=== PATIENT | male | born 1950 | race Caucasian/White ===

== ENCOUNTER 2017-05-21 12:49 | Inpatient (IN) | payer MEDICARE, OTHER ==
[2017-05-21] VITALS: BP 100/58
[~2017-05-21] VITALS: Ht 193 cm; Wt 105.2 kg
[~2017-05-21 12:49] MED LIST: ALBU2.5V38 IH; BISA10SU8 RC; DOCU-141 PO; HEPA500013 IJ; HYDR-548 PO; LEVO500T75 PO; MAGN400O21 PO; NA P133E RC; NORT25CA5 PO; OMEP20CA10 PO; PREG300C PO; SILV20CR13 TP; TRAM50TA2 PO
[2017-05-21] MEDS ORDERED: Magnesium 1GM/D5W 100ML PREMIX 200 ML IV ONE ×2 (12:56→13:19)
--- NOTE | 2017-05-21 12:58 | NUR ---
PT BIB [facility] C/O SOB AND HYPOXIA. 83% ON ROOM AIR, PLACED ON 6L VIA SIMPLE MASK WITH GOOD TOLERANCE. SKIN HOT DIAPHORETIC. RESP LABORED, RETRACTIONS, SHALLOW. NON-PRODUCTIVE COUGH. C/O PAIN IN HANDS AND FEET, WHICH HE REPORTS IS CHRONIC SECONDARY TO PERIPHERAL NEUROPATHY. NOTED TO BE IN AFIB UNCONTROLLED ON MONITOR. EKG IN PROCESS. IV ESTABLISHED FROM EMS.
[2017-05-21] MEDS ORDERED: IV NS 0.9% 1,000 ML BAG IV ONE (13:00)
[2017-05-21] MEDS ORDERED: IPRATROPIUM NEB FS 0.5 MG/2.5 ML AMPUL.NEB NEB ONE (13:00)
[2017-05-21] MEDS ORDERED: DILTIAZEM HCL IV 125 MG in IV D5W 100 ML IV ONE (13:00)
[2017-05-21] MEDS ORDERED: methylPREDNISolone SOD SUCC 125 MG/2ML VIAL IV ONE (13:00)
[2017-05-21] MEDS ORDERED: DILTIAZEM HCL 25 MG IV IVP ONE (13:00)
[2017-05-21] MEDS ORDERED: ALBUTEROL FS 2.5 MG/3 ML VIAL.NEB NEB ONE (13:00)
[2017-05-21] MEDS ORDERED: VANCOMYCIN 1 GM in IV D5W 250 ML IV ONE (13:00)
[2017-05-21] MEDS ORDERED: CEFEPIME 1 GM in IV D5W 50 ML IV ONE (13:00)
[2017-05-21 13:15] LABS: BASOPHILS # (AUTO) 0.3 /CMM (0.0-0.2); BASOPHILS % (AUTO) 2.3 % (0.0-2.0); EOSINOPHILS % (AUTO) 0.1 % (0.0-6.0); HEMATOCRIT 49 % (39-51); HEMOGLOBIN 16.1 g/dL (13.5-17.5); LYMPHOCYTES # (AUTO) 0.2 /CMM (0.8-4.8); LYMPHOCYTES % (AUTO) 1.5 % (20.0-44.0); MEAN CORPUSCULAR HGB CONC 33 g/dl (31.0-36.0); MEAN CORPUSCULAR VOLUME 89 fL (80-96); MONOCYTES # (AUTO) 0.1 /CMM (0.1-1.30); MONOCYTES % (AUTO) 0.6 % (2.0-12.0); NEUTROPHILS # (AUTO) 13.7 /CMM (1.8-8.9); NEUTROPHILS % (AUTO) 95.5 % (43.0-81.0); PLATELET COUNT (AUTO) 266 /CMM (150-450); RDW COEFFICIENT OF VARIATION 15.1 (11.5-15.0); RED BLOOD CELL COUNT(AUTO) 5.51 MIL/uL (4.5-6.0); WHITE BLOOD COUNT (AUTO) 14.3 K/uL (4.3-11.0)
[2017-05-21] MEDS ORDERED: DILTIAZEM HCL 25 MG IV ONE (13:18)
[2017-05-21] MEDS ORDERED: VANCOMYCIN 1 GM VIAL ONE (13:18)
[2017-05-21] MEDS ORDERED: methylPREDNISolone SOD SUCC 125 MG/2ML VIAL ONE (13:22)
[2017-05-21 13:27] LABS: CALCIUM, SERUM 9.1 mg/dL (8.5-10.1); CARBON DIOXIDE 29 mmol/L (21-32); CHLORIDE 100 mmol/L (98-107); GLUCOSE 146 mg/dL (74-106); POTASSIUM 3.9 mmol/L (3.5-5.1); SODIUM SERUM 136 mmol/L (136-145); UREA NITROGEN, BLOOD 12 mg/dL (7-18)
[2017-05-21] MEDS ORDERED: IPRATROPIUM NEB FS 0.5 MG/2.5 ML AMPUL.NEB ONE (13:29)
[2017-05-21] MEDS ORDERED: ALBUTEROL FS 2.5 MG/3 ML VIAL.NEB ONE (13:29)
[2017-05-21 13:30] LABS: INR 1.14 (0.85-1.15)
[2017-05-21 13:33] LABS: ALANINE AMINOTRANSFERASE 7 U/L (12-78); ALBUMIN 2.4 g/dL (3.4-5.0); ALKALINE PHOSPHATASE 85 U/L (46-116); ASPARTATE AMINOTRANSFERASE 16 U/L (15-37); BILIRUBIN,DIRECT 0.4 mg/dL (0.0-0.2); BILIRUBIN,TOTAL 1.1 mg/dL (0.2-1.0); TOTAL PROTEIN, SERUM 6.6 g/dL (6.4-8.2)
[2017-05-21] MEDS ORDERED: ATOR10TA PO (13:34)
[2017-05-21] MEDS ORDERED: MORP15TA10 PO (13:34)
[2017-05-21] MEDS ORDERED: ACET-868 PO (13:34)
[2017-05-21] MEDS ORDERED: APIX2.5T PO (13:34)
[2017-05-21] MEDS ORDERED: AMIN30LI4 PO (13:34)
[2017-05-21] MEDS ORDERED: PREG150C PO (13:34)
[2017-05-21] MEDS ORDERED: ASPI-1169 PO (13:34)
[2017-05-21 13:35] LABS: TROPONIN I < 0.017 ng/mL (0.00-0.056)
--- NOTE | 2017-05-21 13:35 | NUR ---
PT REFUSES BREATHING TREATMENT AND IN AND OUT CATH DESPITE EDUCATION BY MYSELF AND RT ALEXANDRA ABOUT BENEFITS AND RISKS OF BREATHING TREATMENT AND CATHETER. PT IS A/OX4, INCONTINENT, WEARING DIAPER; UNABLE TO PROVIDE SAMPLE BY URINAL. NOTIFIED.
--- NOTE | 2017-05-21 13:43 | NUR ---
RT NOTE PT REFUSED BREATHING TX, MED WASTED. PT WAS EDUCATED ON REASON WHY MD ORDERED TX. PT STATED HE WAS NOT SHORT OF BREATH AND WAS FIRM ON REJECTING TX. DR MIJARES AWARE AND CHRISTIANO COMBS AWARE. PT IS IN NO RESPIRATORY DISTRESS AT THIS TIME.
--- NOTE | 2017-05-21 13:45 | NUR ---
PT REFUSES FLU SWAB DESPITE EDUCATION ON BENEFITS AND RISKS. NOTIFIED .
[2017-05-21] MEDS ORDERED: TRAMADOL HCL 50 MG TABLET PO PRN (14:00)
[2017-05-21] MEDS ORDERED: ACETAMINOPHEN 325 MG TABLET PO PRN ×2 (14:00→14:30)
[2017-05-21] MEDS ORDERED: NA PHOS,M-B/NA PHOS,DI-BA 1 EA ENEMA RC PRN (14:00)
[2017-05-21] MEDS ORDERED: BISACODYL SUPP (10 MG) 10 MG/SUPP.RECT SUPP.RECT RC PRN (14:00)
[2017-05-21] MEDS ORDERED: MAGNESIUM HYDROXIDE 30 ML UDC PO PRN ×2 (14:00→14:30)
--- NOTE | 2017-05-21 14:13 | NUR ---
DRIP TITRATED TO 10MG/HR PER MD ORDER
[2017-05-21] MEDS ORDERED: ALBUTEROL FS 2.5 MG/0.5 ML VIAL.NEB NEB PRN (14:30)
[2017-05-21] MEDS ORDERED: ZOLPIDEM TARTRATE 5 MG TABLET PO PRN (14:30)
[2017-05-21] MEDS ORDERED: HYDROCODONE/APAP 5/325MG 1 EACH TABLET PO PRN (14:30)
[2017-05-21] MEDS ORDERED: ONDANSETRON HCL/PF 4 MG/2 ML VIAL IVP PRN (14:30)
--- NOTE | 2017-05-21 14:43 | NUR ---
REPORT GIVEN TO NATALIYA COMBS FOR ADMISSION
--- NOTE | 2017-05-21 14:50 | NUR ---
NOTED WITH HYPOTENSION; CARDIZEM DRIP DECREASED TO 5MG/HR. PT MARKEDLY LESS DIAPHORETIC THAN UPON INITIAL PRESENTATION, RESPIRATIONS LESS LABORED. REMAINS ALERT/ORIENTED.
--- NOTE | 2017-05-21 15:20 | NUR ---
LINENS CHANGED AND ED-CARE RENDERED. PT PULLED OUT LFA 18G IV, PRESSURE DRESSING APPLIED. PT THEN TRANSPORTED TO [place] [id number] IN GUARDED CONDITION VIA ACLS PROTOCOL WITH ELIESER HARDY ONGOING. Addendum: 05/21/17 at 1548 by ALONDRA ONGOING AT 5MG/HR
[2017-05-21] MEDS ORDERED: MORPHINE SULFATE INJ 4 MG/ML DISP.SYRIN IV PRN (15:30)
[2017-05-21 15:40] VITALS: BP 101/51
--- NOTE | 2017-05-21 15:40 | NUR ---
RN NOTES RECEIVED PT FROM ER IN ROOM 118-2 , A/Ox4, ON 6L O2 FACE MASK , RESPIRATION EVEN AND UNLABORED, O2 SAT 96%, R WRIST IV SITE G 18 CDI, ON TELE A.FIB HR IN 100'S, CARDIZEM AT 5MG /HR RUNNING VIA R WRIST IV SITE , REDNESS NOTED TO SCROTUM , SR UP x3, CALL LIGHT WITHIN EASY REACH, BED LOCKED AND IN LOWEST POSITION , CONTINUE TO MONITOR PT CLSOELY .
[2017-05-21] MEDS ORDERED: FEE PK DOSING 1 MIN EA MC ONE (15:50)
[2017-05-21 16:00] VITALS: BP 92/51
--- NOTE | 2017-05-21 16:40 | NUR ---
RN NOTES PT STATED WANTS TO BE DNR/DRI, DR. ABERNATHY NOTIFIED .
[2017-05-21] MEDS ORDERED: APIXABAN 2.5 MG TABLET PO SCH (17:00)
[2017-05-21] MEDS ORDERED: DILTIAZEM HCL 50 MG IV IV PRN (17:00)
[2017-05-21] MEDS ORDERED: PREGABALIN 100 MG CAPSULE PO SCH (17:00)
[2017-05-21] MEDS ORDERED: PREGABALIN 25 MG CAPSULE PO SCH (17:30)
[2017-05-21] MEDS: PIPERACILLIN /TAZOBACTAM 3.375 G in IV D5W 50 ML IV SCH (19:09)
[2017-05-21 20:00] VITALS: BP 94/69
[2017-05-21] MEDS: PREGABALIN 25 MG CAPSULE PO SCH (21:18)
[2017-05-21] MEDS: VANCOMYCIN 1 GM in IV D5W 250 ML IV SCH (21:19)
[2017-05-21] MEDS: ATORVASTATIN 10 MG TABLET PO SCH (21:19)
[2017-05-21] MEDS: MORPHINE SULFATE SR 15 MG TABLET.SA PO SCH (21:19)
[2017-05-21] MEDS: methylPREDNISolone SOD SUCC 125 MG/2ML VIAL IV SCH (21:19)
[2017-05-21] MEDS: APIXABAN 2.5 MG TABLET PO SCH (21:25)
--- NOTE | 2017-05-21 21:49 | NUR ---
RN NOTES RECEIVED PT FROM AM SHIFT NURSE IN ROOM 118-2 , A/Ox4, ON 6L O2 FACE MASK , RESPIRATION EVEN AND UNLABORED, O2 SAT 96%, R WRIST IV SITE G 18 CDI, ON TELE A.FIB HR IN 80'S, S/P CARDIZEM AT 5MG /HR STOPPED , REDNESS NOTED TO SCROTUM , SR UP x3, CALL LIGHT WITHIN EASY REACH, BED LOCKED AND IN LOWEST POSITION , CONTINUE TO MONITOR PT CLSOELY .
[2017-05-21] MEDS: MAG HYDROX/AL HYDROX/SIMETH 30 ML UDC PO PRN (21:59)
[2017-05-22] VITALS: BP 106/66
[2017-05-22] MEDS: PIPERACILLIN /TAZOBACTAM 3.375 G in IV D5W 50 ML IV SCH ×4 (00:06→17:21)
[2017-05-22 04:00] VITALS: BP 106/66
[2017-05-22] MEDS: methylPREDNISolone SOD SUCC 125 MG/2ML VIAL IV SCH ×3 (05:38→20:43)
--- NOTE | 2017-05-22 06:22 | NUR ---
RN PERRY CLOSING NOTES ENDORSED PT FROM AM SHIFT NURSE IN ROOM 118-2 , A/Ox4, ON 6L O2 FACE MASK , RESPIRATION EVEN AND UNLABORED, O2 SAT 96%, R WRIST IV SITE G 18 CDI, ON TELE A.FIB HR IN 80'S, S/P CARDIZEM AT 5MG /HR STOPPED , REDNESS NOTED TO SCROTUM , SR UP x3, CALL LIGHT WITHIN EASY REACH, BED LOCKED AND IN LOWEST POSITION , CONTINUE TO MONITOR PT CLSOELY
[2017-05-22] MEDS: VANCOMYCIN 1 GM in IV D5W 250 ML IV SCH ×3 (06:51→21:15)
[2017-05-22 07:17] LABS: BASOPHILS % (AUTO) 0.1 % (0.0-2.0); HEMATOCRIT 45 % (39-51); HEMOGLOBIN 14.7 g/dL (13.5-17.5); LYMPHOCYTES # (AUTO) 0.2 /CMM (0.8-4.8); LYMPHOCYTES % (AUTO) 1.3 % (20.0-44.0); MEAN CORPUSCULAR HGB CONC 32 g/dl (31.0-36.0); MEAN CORPUSCULAR VOLUME 91 fL (80-96); MONOCYTES # (AUTO) 0.1 /CMM (0.1-1.30); MONOCYTES % (AUTO) 0.7 % (2.0-12.0); NEUTROPHILS # (AUTO) 18.6 /CMM (1.8-8.9); NEUTROPHILS % (AUTO) 97.9 % (43.0-81.0); PLATELET COUNT (AUTO) 226 /CMM (150-450); RDW COEFFICIENT OF VARIATION 16.3 (11.5-15.0); RED BLOOD CELL COUNT(AUTO) 4.97 MIL/uL (4.5-6.0)
[2017-05-22 07:40] LABS: CALCIUM, SERUM 8.6 mg/dL (8.5-10.1); CREATININE 0.9 mg/dL (0.6-1.3); MAGNESIUM 2.2 mg/dL (1.8-2.4); PHOSPHORUS 3.3 mg/dL (2.5-4.9); POTASSIUM 4.2 mmol/L (3.5-5.1)
[2017-05-22 08:00] VITALS: BP 113/65
[2017-05-22] MEDS: ASPIRIN 81 MG TAB.CHEW PO SCH (08:19)
[2017-05-22] MEDS: MORPHINE SULFATE SR 15 MG TABLET.SA PO SCH ×2 (08:20→20:45)
[2017-05-22] MEDS: PROSOURCE / PROSTAT (PYXIS) 30 ML UDC PO SCH ×2 (08:20→09:48)
[2017-05-22] MEDS: APIXABAN 2.5 MG TABLET PO SCH ×2 (08:20→20:43)
[2017-05-22] MEDS: PREGABALIN 25 MG CAPSULE PO SCH ×2 (08:42→20:44)
[2017-05-22 10:53] LABS: BAND % (MANUAL) 7 % (0.0-5.0); LYMPHOCYTES % (MANUAL) 2 % (16-48); NEUTROPHILS % (MANUAL) 91 (42-76)
--- NOTE | 2017-05-22 12:46 | NUR ---
MS RN NOTE 0720: Received patient awake, A/Ox4. No respiratory distress noted at this time. Noted removing simple mask, encouraged to use NC. Sat 90% on room air.Afib 90's controlled on the monitor. PIV intact. No fever noted at this time, but noted with diaphoresis at times. Made patient comfortable. 0900: S/E by Dr. Moralez, with order to DC tele and transfer to [place], CN aware. 1200: Noted patient's SBP 80-90's. Patient has no c/o dizziness, lightheadedness etc, placed patient flat in bed. Will continue to monitor. 1240: No any significant changes noted at this time.
--- NOTE | 2017-05-22 15:11 | NUR ---
INITIAL ECHO FINDING SHOWED EF OF 32%~ AND WITH PLEURAL EFFUSION. SCANNED HEART ON RIGHT SIDE OF CHEST POSSIBLY DEXTROCARDIA. INFORMED ATTENDING NURSE (CHARMAINE) OF PRELIMINARY RESULTS.
[2017-05-22 16:00] VITALS: BP 90/55
--- NOTE | 2017-05-22 18:28 | NUR ---
MS RN NOTE No significant changes noted. kept clean, warm and dry. Needs attended. Kept call light at reach. SBP 90's, no c/o dizziness, lightheadedness etc. Turned q2. Diet tolerated well. Remained afebrile, no SE from ATB therapy, will endorse to next shift.
--- NOTE | 2017-05-22 19:55 | NUR ---
RN NOTES RECEIVED PT FROM AM SHIFT NURSE IN ROOM 118-2 , A/Ox4, ON NC @ 2L , RESPIRATION EVEN AND UNLABORED, O2 SAT 96%, R WRIST IV SITE G 18 CDI, ON MS MONITORING, FOR DC PLANNING , REDNESS NOTED TO SCROTUM , SR UP x3, CALL LIGHT WITHIN EASY REACH, BED LOCKED AND IN LOWEST POSITION , CONTINUE TO MONITOR PT CLSOELY .
[2017-05-22 20:00] VITALS: BP 117/69
[2017-05-22] MEDS: ATORVASTATIN 10 MG TABLET PO SCH (21:11)
--- NOTE | 2017-05-22 21:16 | NUR ---
2200 MARCELA 1GM HELD, MARCELA T 21 H.
[2017-05-22] MEDS: MAG HYDROX/AL HYDROX/SIMETH 30 ML UDC PO PRN (22:22)
[2017-05-23] VITALS: BP 117/69
[2017-05-23] MEDS: PIPERACILLIN /TAZOBACTAM 3.375 G in IV D5W 50 ML IV SCH ×4 (00:09→17:08)
[2017-05-23 04:00] VITALS: BP 107/56
[2017-05-23] MEDS: methylPREDNISolone SOD SUCC 125 MG/2ML VIAL IV SCH ×3 (04:28→21:11)
[2017-05-23] MEDS: VANCOMYCIN 1 GM in IV D5W 250 ML IV SCH (05:57)
--- NOTE | 2017-05-23 05:58 | NUR ---
0600 VANCO 1GM HELD, VANCO T 21 H.
--- NOTE | 2017-05-23 05:59 | NUR ---
RN CLOSING NOTES ENDORSED PT TO AM SHIFT NURSE IN ROOM 118-2 , A/Ox4, ON NC @ 2L , RESPIRATION EVEN AND UNLABORED, O2 SAT 96%, R WRIST IV SITE G 18 CDI, ON MS MONITORING , REDNESS NOTED TO SCROTUM , SR UP x3, CALL LIGHT WITHIN EASY REACH, BED LOCKED AND IN LOWEST POSITION , CONTINUE TO MONITOR PT CLSOELY
[2017-05-23 06:48] LABS: CALCIUM, SERUM 8.1 mg/dL (8.5-10.1); CREATININE 0.9 mg/dL (0.6-1.3); POTASSIUM 4.2 mmol/L (3.5-5.1)
--- NOTE | 2017-05-23 07:28 | NUR ---
M/S RN NOTE: RECEIVED PATIENT IN BED, AWAKE, ALERT AND VERBALLY RESPONSIVE. RESPIRATION IS EVEN AND UNLABORED. ON O2 2L/MIN VIA NC SATURATING 95%. VERBALIZED PAIN ON HIS (B) HANDS AND FEET AND A MORPHINE 15 MG WAS ROUTINELY SCHEDULED. HOB ELEVATED. (R) WRIST IV PERIPHERAL LINE WAS INTACT W/ TRANSPARENT DRESSING. CALL LIGHT WITHIN REACH. NEEDS ANTICIPATED.
[2017-05-23 07:38] LABS: HEMATOCRIT 42 % (39-51); HEMOGLOBIN 13.5 g/dL (13.5-17.5); LYMPHOCYTES # (AUTO) 0.3 /CMM (0.8-4.8); LYMPHOCYTES % (AUTO) 1.5 % (20.0-44.0); MEAN CORPUSCULAR HGB CONC 32 g/dl (31.0-36.0); MEAN CORPUSCULAR VOLUME 91 fL (80-96); MONOCYTES # (AUTO) 0.5 /CMM (0.1-1.30); MONOCYTES % (AUTO) 2.6 % (2.0-12.0); NEUTROPHILS # (AUTO) 17.5 /CMM (1.8-8.9); NEUTROPHILS % (AUTO) 95.9 % (43.0-81.0); PLATELET COUNT (AUTO) 213 /CMM (150-450); RDW COEFFICIENT OF VARIATION 16.2 (11.5-15.0); RED BLOOD CELL COUNT(AUTO) 4.61 MIL/uL (4.5-6.0); WHITE BLOOD COUNT (AUTO) 18.2 K/uL (4.3-11.0)
[2017-05-23 07:53] LABS: CHOLESTEROL 61 mg/dL (<200); HDL CHOLESTEROL 41 mg/dL (40-60); LDL 21 mg/dL (0-99); TRIGLYCERIDES 55 mg/dL (30-150)
[2017-05-23 08:00] VITALS: BP 105/72
[2017-05-23 08:04] LABS: BAND % (MANUAL) 5 % (0.0-5.0); LYMPHOCYTES % (MANUAL) 2 % (16-48); MONOCYTES % (MANUAL) 2 % (0-11.0); NEUTROPHILS % (MANUAL) 91 (42-76)
[2017-05-23] MEDS: ASPIRIN 81 MG TAB.CHEW PO SCH (09:02)
[2017-05-23] MEDS: APIXABAN 2.5 MG TABLET PO SCH ×2 (09:02→21:16)
[2017-05-23] MEDS: PREGABALIN 25 MG CAPSULE PO SCH ×2 (09:02→21:15)
[2017-05-23] MEDS: MORPHINE SULFATE SR 15 MG TABLET.SA PO SCH ×2 (09:06→21:15)
--- NOTE | 2017-05-23 12:10 | NUR ---
M/S RN NOTE: CALLED AND SPOKE W/ RAFAEL, PHARMACIST AND INFORMED HIM ABOUT THE VANCO TROUGH OF 21 YESTERDAY. PER RAFAEL, HE WILL ADJUST THE DOSING FOR THE VANCOMYCIN AND WILL SEND THE DOSE. OK TO GIVE VANCOMYCIN.
[2017-05-23] MEDS: VANCOMYCIN 0.75 GM in IV D5W 250 ML IV SCH ×2 (13:06→21:11)
[2017-05-23 16:00] VITALS: BP 111/72
[2017-05-23] MEDS: Z GUARD REMEDY 2 OZ OINT TP PRN (19:01)
--- NOTE | 2017-05-23 19:16 | NUR ---
M/S RN NOTE: PATIENT IN BED, AWAKE, ALERT AND VERBALLY RESPONSIVE. WATCHING TELEVISION. RESPIRATION IS EVEN AND UNLABORED. ON O2 2L/MIN VIA NC AND SATURATING 96%. (R) WRIST IV LINE NOTED PATENT AND INTACT. HOB ELEVATED. CALL LIGHT WITHIN REACH. REPORT GIVEN TO PM SHIFT NURSE FOR CONTINUITY OF CARE.
[2017-05-23] MEDS: ATORVASTATIN 10 MG TABLET PO SCH (21:13)
[2017-05-24] VITALS: BP 100/65
[2017-05-24] MEDS: PIPERACILLIN /TAZOBACTAM 3.375 G in IV D5W 50 ML IV SCH ×3 (00:47→11:44)
[2017-05-24] MEDS: VANCOMYCIN 0.75 GM in IV D5W 250 ML IV SCH (04:22)
[2017-05-24] MEDS: methylPREDNISolone SOD SUCC 125 MG/2ML VIAL IV SCH ×2 (04:22→12:03)
--- NOTE | 2017-05-24 05:46 | NUR ---
M/S RN CLOSING NOTE: PATIENT ENDORSED IN BED, AWAKE, ALERT AND VERBALLY RESPONSIVE. WATCHING TELEVISION. RESPIRATION IS EVEN AND UNLABORED. ON O2 2L/MIN VIA NC AND SATURATING 96%. (R) WRIST IV LINE NOTED PATENT AND INTACT. HOB ELEVATED. CALL LIGHT WITHIN REACH. REPORT GIVEN TO PM SHIFT NURSE FOR CONTINUITY OF CARE.
--- NOTE | 2017-05-24 07:30 | NUR ---
M/S RN NOTE: RECEIVED PATIENT IN BED, AWAKE, ALERT AND VERBALLY RESPONSIVE. RESPIRATION IS EVEN AND UNLABORED. ON O2 2L/MIN VIA NC SATURATING 93%. VERBALIZED PAIN ON HIS (B) HANDS AND FEET AND A MORPHINE 15 MG WAS ROUTINELY SCHEDULED. HOB ELEVATED. (R) WRIST IV PERIPHERAL LINE WAS INTACT W/ TRANSPARENT DRESSING. BED ALARM AND LOCKED AT ALL TIMES. CALL LIGHT WITHIN REACH. NEEDS ANTICIPATED.
[2017-05-24 07:47] LABS: EOSINOPHILS % (AUTO) 0.1 % (0.0-6.0); HEMATOCRIT 40 % (39-51); HEMOGLOBIN 13.1 g/dL (13.5-17.5); LYMPHOCYTES # (AUTO) 0.3 /CMM (0.8-4.8); LYMPHOCYTES % (AUTO) 2.3 % (20.0-44.0); MEAN CORPUSCULAR HGB CONC 33 g/dl (31.0-36.0); MEAN CORPUSCULAR VOLUME 90 fL (80-96); MONOCYTES # (AUTO) 0.2 /CMM (0.1-1.30); MONOCYTES % (AUTO) 1.7 % (2.0-12.0); NEUTROPHILS # (AUTO) 11.2 /CMM (1.8-8.9); NEUTROPHILS % (AUTO) 95.9 % (43.0-81.0); PLATELET COUNT (AUTO) 192 /CMM (150-450); RDW COEFFICIENT OF VARIATION 16.4 (11.5-15.0); RED BLOOD CELL COUNT(AUTO) 4.45 MIL/uL (4.5-6.0); WHITE BLOOD COUNT (AUTO) 11.7 K/uL (4.3-11.0)
[2017-05-24 08:00] VITALS: BP 117/76
[2017-05-24 08:24] LABS: CALCIUM, SERUM 7.8 mg/dL (8.5-10.1); CREATININE 0.9 mg/dL (0.6-1.3); POTASSIUM 4.2 mmol/L (3.5-5.1)
[2017-05-24] MEDS: PREGABALIN 25 MG CAPSULE PO SCH (08:48)
[2017-05-24] MEDS: ASPIRIN 81 MG TAB.CHEW PO SCH (08:48)
[2017-05-24] MEDS: APIXABAN 2.5 MG TABLET PO SCH (08:48)
[2017-05-24] MEDS: MORPHINE SULFATE SR 15 MG TABLET.SA PO SCH (08:49)
[2017-05-24] MEDS: PROSOURCE / PROSTAT (PYXIS) 30 ML UDC PO SCH ×2 (08:50→09:00)
[2017-05-24] MEDS ORDERED: MEROPENEM 500 MG in IV NS 0.9% 50 ML IV SCH (14:00)
[2017-05-24] MEDS ORDERED: PRED50TA PO (14:42)
[2017-05-24] MEDS ORDERED: MERO500V IV (14:42)
[2017-05-24] MEDS ORDERED: METH4TAB3 PO (14:42)
[2017-05-24 16:00] VITALS: BP 121/71
[2017-05-24] MEDS: Z GUARD REMEDY 2 OZ OINT TP PRN (16:43)
--- NOTE | 2017-05-24 17:30 | NUR ---
M/S RN NOTE: PATIENT WAS DISCHARGED TO [facility] AND WAS ACCOMPANIED BY 3 COMMUTER TRAIN OPERATOR OF [employer] REPORT WAS GIVEN TO LAURYN JONES FROM THE SNF. ALL PAPERWORK WAS HANDED TO THE COMMUTER TRAIN OPERATOR. PATIENT'S (R) WRIST IV PERIPHERAL LINE WAS NOTED INTACT AND IN PLACED. REQUESTED NOT TO BE REMOVED DUE TO THE CONTINUED IV ANTIBIOTIC THERAPY AT THE ASSISTED. PATIENT REFUSED TO RECEIVED OXYGEN AND SATURATING 92-95% IN RA. DENIED ANY PAIN. SENSITIVE TO TOUCH ON HIS (B) HANDS AND FEET. PICTURE WAS TAKEN ON HIS (L) UPPER EXTREMITY, AND FILED IN THE CHART. EYE GLASSES WAS RELEASED W/ THE PATIENT UPON DISCHARGE.
== END 2017-05-24 17:38 | DRG 871 ==
LOC: ER 12:50 → TELE-TD 14:50 → MEDSG1 05-22 11:43
PROVIDERS: ADMIT Internal Medicine; ATTEND Internal Medicine
DX: A41.9 Sepsis, unspecified organism (principal); J18.9 Pneumonia, unspecified organism; I50.23 Acute on chronic systolic (congestive) heart failure; R53.2 Functional quadriplegia; D68.69 Other thrombophilia; I48.91 Unspecified atrial fibrillation; I11.0 Hypertensive heart disease with heart failure; J44.0 Chronic obstructive pulmonary disease with (acute) lower respiratory infection; N39.0 Urinary tract infection, site not specified; J44.1 Chronic obstructive pulmonary disease with (acute) exacerbation; G62.9 Polyneuropathy, unspecified; E78.5 Hyperlipidemia, unspecified; K21.9 Gastro-esophageal reflux disease without esophagitis; F03.90 Unspecified dementia, unspecified severity, without behavioral disturbance, psychotic disturbance, mood disturbance, and anxiety; G89.4 Chronic pain syndrome; Z66 Do not resuscitate; Z74.01 Bed confinement status; Z79.01 Long term (current) use of anticoagulants; Z79.82 Long term (current) use of aspirin; B96.20 Unspecified Escherichia coli [E. coli] as the cause of diseases classified elsewhere; Z16.12 Extended spectrum beta lactamase (ESBL) resistance
CPT/HCPCS: 36415; 71045-TC; 80048-TC; 80061-TC; 80076-TC; 80202-TC; 83605-TC; 83735-TC; 84100-TC; 84484-TC; 85025-TC; 85730-TC; 87040-TC; 87081-TC; 87186-TC; 93307-TC; A4216; A4606; J0692; J2185; J2543; J2930; J3370; J3475; J3490; J7030; J7050; J7060; Z7610

== ENCOUNTER 2018-12-03 04:00 | Inpatient (IN) | payer MEDICARE, OTHER ==
[~2018-12-03] VITALS: Ht 193 cm; Wt 100.2 kg
[~2018-12-03 04:00] MED LIST changes: +ACET-868 PO; -ALBU2.5V38 IH; +AMIN30LI4 PO; +APIX2.5T PO; +ASPI-1169 PO; +ATOR10TA PO; -DOCU-141 PO; -HEPA500013 IJ; -HYDR-548 PO; -LEVO500T75 PO; +MERO500V21 IV; +METH4TAB3 PO; +MORP15TA10 PO; -NORT25CA5 PO; -OMEP20CA10 PO; +PRED50TA PO; +PREG150C PO; -PREG300C PO; -SILV20CR13 TP
--- NOTE | 2018-12-03 04:11 | NUR ---
PT BIB EMS C/O A-FIB WITH RVR, SOB WITH COUGH AND CONGESTION, BILATERAL FOOT AND HAND PAIN DUE TO NEUROPATHY. PT AAOX4. PT PLACED ON CONTINIOUS MANAGER FRENCH AND PULSE OX, WILL CONTINUE TO MONITOR.
[2018-12-03] MEDS ORDERED: DILTIAZEM HCL 50 MG IV IV ONE (04:30)
[2018-12-03] MEDS ORDERED: DILTIAZEM HCL IV 125 MG in IV NS 0.9% 100 ML IV PRN (04:30)
[2018-12-03 04:33] LABS: BASOPHILS % (AUTO) 0.2 % (0.0-2.0); HEMATOCRIT 55 % (39-51); HEMOGLOBIN 17.7 g/dL (13.5-17.5); LYMPHOCYTES # (AUTO) 0.2 /CMM (0.8-4.8); LYMPHOCYTES % (AUTO) 0.7 % (20.0-44.0); MEAN CORPUSCULAR HGB CONC 32 g/dl (31.0-36.0); MEAN CORPUSCULAR VOLUME 93 fL (80-96); MONOCYTES # (AUTO) 0.6 /CMM (0.1-1.30); NEUTROPHILS # (AUTO) 28.2 /CMM (1.8-8.9); NEUTROPHILS % (AUTO) 97.1 % (43.0-81.0); PLATELET COUNT (AUTO) 247 /CMM (150-450); RED BLOOD CELL COUNT(AUTO) 5.92 MIL/uL (4.5-6.0)
[2018-12-03] MEDS ORDERED: DILTIAZEM HCL 25 MG IV ONE (04:39)
--- NOTE | 2018-12-03 04:43 | NUR ---
NOTED HYPOTENSION, ER MD AWARE. PER VERBAL MD ORDER WILL HOLD CARDIZEM DRIP.
[2018-12-03 04:44] LABS: CALCIUM, SERUM 9.2 mg/dL (8.5-10.1); CREATININE 1.7 mg/dL (0.6-1.3); POTASSIUM 3.3 mmol/L (3.5-5.1)
--- NOTE | 2018-12-03 04:55 | NUR ---
DUPLEX AT BEDSIDE
[2018-12-03] MEDS ORDERED: IV NS 0.9% 1,000 ML BAG IV ONE (05:00)
[2018-12-03] MEDS ORDERED: LIDOCAINE 2% JEL UROJET 10 ML MM ONE ×2 (05:22→06:00)
--- NOTE | 2018-12-03 05:40 | NUR ---
RADIOLOGY AT BEDSIDE FOR XRAY.
--- NOTE | 2018-12-03 05:56 | NUR ---
NOTED HYPOTENSION. ER MD AWARE. PER VERBAL MD ORDER, WILL ADMINISTER 500ML NS IVX1 NOW
[2018-12-03] MEDS ORDERED: IV NS 0.9% 500 ML BAG IV ONE (06:00)
[2018-12-03] MEDS ORDERED: LORAZEPAM 1 MG TABLET PO ONE (06:00)
--- NOTE | 2018-12-03 06:13 | NUR ---
URINE COLLECTED AND SENT TO LAB
[2018-12-03] MEDS ORDERED: Z GUARD REMEDY 2 OZ OINT TP PRN (06:30)
[2018-12-03] MEDS ORDERED: MAGNESIUM HYDROXIDE 30 ML UDC PO PRN (06:30)
[2018-12-03] MEDS ORDERED: LEVOFLOXACIN 750 MG /D5W 150ML 750 MG in PREMIX 1 EA IV SCH (06:30)
[2018-12-03] MEDS ORDERED: MAG HYDROX/AL HYDROX/SIMETH 30 ML UDC PO PRN (06:30)
[2018-12-03] MEDS ORDERED: ZOLPIDEM TARTRATE 5 MG TABLET PO PRN (06:30)
[2018-12-03] MEDS ORDERED: ONDANSETRON HCL/PF 4 MG/2 ML VIAL IVP PRN (06:30)
[2018-12-03] MEDS ORDERED: ACETAMINOPHEN 325 MG TABLET PO PRN (06:30)
--- NOTE | 2018-12-03 07:00 | NUR ---
REPORT GIVEN TO CELE COMBS
--- NOTE | 2018-12-03 07:27 | NUR ---
PT TRANSFERED TO [facility] PER ACLS PROTOCOL.
[2018-12-03] MEDS ORDERED: POTASSIUM CL. PREMIX PERIPHER. 50 ML IV SCH (07:30)
--- NOTE | 2018-12-03 07:30 | NUR ---
RN OPENING NOTES PT BROUGHT ONTO UNIT BY GERALD KELLER. PT STATES HE WOULD LIKE TO HAVE A SINGLE ROOM BUT NO CP OR SOB AT PRESENT TIME. WILL CONTINUE WITH ADMISSION.
[2018-12-03 08:00] VITALS: BP 112/58
[2018-12-03] MEDS ORDERED: CHOL20004 PO (08:31)
[2018-12-03] MEDS ORDERED: NORT25CA PO (08:31)
[2018-12-03] MEDS ORDERED: ACET-907 PO (08:31)
[2018-12-03] MEDS: IV NS 0.9% 1,000 ML IV PRN (08:55)
[2018-12-03] MEDS ORDERED: ENOXAPARIN SODIUM 40 MG/0.4 ML DISP.SYRIN SQ SCH (09:00)
[2018-12-03 09:06] LABS: BILIRUBIN,DIRECT 3.4 mg/dL (0.0-0.2); BILIRUBIN,TOTAL 4.2 mg/dL (0.2-1.0)
[2018-12-03 09:25] LABS: APPEARANCE,URINE SL CLOUDY (CLEAR); BILIRUBIN,URINE LARGE (NEGATIVE); BLOOD, URINE MODERATE Ery/uL (NEGATIVE); COLOR,URINE DARK YELLO (YELLOW); KETONES,URINE TRACE (NEGATIVE); LEUKOCYTE ESTERASE ,URINE NEGATIVE (NEGATIVE); NITRITE, URINE NEGATIVE (NEGATIVE); PROTEIN,URINE 100 mg/dl (NEGATIVE); UGLUCOSE NEGATIVE (NEGATIVE); UROBILINOGEN,URINE >=8.0 EU/dL (0.2)
[2018-12-03 09:50] LABS: BACTERIA,URINE Few /HPF (None Seen); SQUAMOUS EPITHELIAL CELL,UR Few /HPF (None Seen)
[2018-12-03] MEDS: MEROPENEM 500 MG in IV NS 0.9% 50 ML IV SCH ×3 (09:54→20:30)
[2018-12-03] MEDS ORDERED: POTASSIUM CHLORIDE 20 MEQ TAB.PRT.SR PO ONE (10:00)
[2018-12-03] MEDS: APIXABAN 2.5 MG TABLET PO SCH ×2 (10:08→17:22)
[2018-12-03] MEDS ORDERED: METOPROLOL SUCCINATE 25 MG TAB.SR.24H PO SCH (11:30)
[2018-12-03 12:00] VITALS: BP 116/64
[2018-12-03 16:00] VITALS: BP 118/71
[2018-12-03 16:36] LABS: APPEARANCE,URINE CLEAR (CLEAR); BILIRUBIN,URINE MODERATE (NEGATIVE); BLOOD, URINE MODERATE Ery/uL (NEGATIVE); COLOR,URINE DARK YELLO (YELLOW); KETONES,URINE NEGATIVE (NEGATIVE); LEUKOCYTE ESTERASE ,URINE TRACE (NEGATIVE); NITRITE, URINE NEGATIVE (NEGATIVE); PH,URINE 6.5 (5.0-8.0); PROTEIN,URINE 30 mg/dl (NEGATIVE); UGLUCOSE NEGATIVE (NEGATIVE); UROBILINOGEN,URINE >=8.0 EU/dL (0.2)
[2018-12-03 16:44] LABS: BACTERIA,URINE None seen /HPF (None Seen); SQUAMOUS EPITHELIAL CELL,UR Few /HPF (None Seen)
[2018-12-03 16:45] LABS: CREATININE, URINE 147.1 MG/DL (30.0-125.0); URINE TOTAL PROTEIN 138.6 mg/dL (0-11.9)
--- NOTE | 2018-12-03 17:45 | NUR ---
PT REFUSING SCD'S AT THISD TIME STATES HURTS HIS LEGS WILL CONTINUE TO EDUCATE PT ABOUT THE USAGE OF SCD.
[2018-12-03 18:37] LABS: EOSINOPHIL,URINE None Seen
--- NOTE | 2018-12-03 19:25 | NUR ---
TELE/RN NOTES PATIENT RECEIVED IN BED, RESTING COMFORTABLY AT THIS TIME. NO S/S OF ACUTE DISTRESS NOTED, RESPIRATION EVEN AND UNLABORED, NO SOB NOTED, PATIENT A/O X4, DENIES ANY PAIN OR DISCOMFORT AT THIS TIME, PATIENT ON O2 1LPM VIA NC, O2 SATURATION 94%. HOB ELEVATED TO 45 DEGREE, CALL LIGHT WITHIN EASY REACH. PATIENT ON TELE MONITORING WITH UNCONTROLLED, A-FIB RATE 120, MD AWARE. SAFETY MAINTAINED, BED AT THE LOWEST LOCKED POSITION. WILL CONTINUE TO MONITOR PATIENT PER PLAN OF CARE.
--- NOTE | 2018-12-03 19:36 | NUR ---
RN CLOSING NOTES PT RESTING IN BED. DENIES ANY PAIN OR SOB AT PRESENT TIME. REPORT GIVEN TO RESEARCH ASSOCIATE MOLECULAR BIOLOGY RN FOR AFSHAN. BED IS LOCKED AND IN LOWEST POSITION WITH CALL LIGHT IN REACH. NIXON DRAINING TO GRAVITY. PT STILL REQUESTING GLASSES. PT ARRIVED WITH NO BELONGINGS AND WAS SHOWN BELONGINGS LIST PT NOW REQUESTING IF WE HAVE A SPARE HE WOULD LIKE TO USE THEM. PT IS COOPERATIVE. PT ON 1 L O2 VIA NC. WILL ENDORSE AFSHAN TO RESEARCH ASSOCIATE MOLECULAR BIOLOGY RN.
[2018-12-03 20:00] VITALS: BP 104/70
[2018-12-03 20:22] VITALS: BP 104/70
--- NOTE | 2018-12-03 21:40 | NUR ---
LAB CALLED AT THIS TIME TO RELAY PATIENT BLOOD CX PRELIMINARY SHOWS GRAM NEGATIVE RODS, CALLED LISSETH TORO MADE AWARE, WITH NO NEW ORDER AT THIS TIME. WILL CONTINUE TO MONITOR PATIENT
[2018-12-04] VITALS: BP 97/73
[2018-12-04] MEDS: IV NS 0.9% 1,000 ML IV PRN (00:11)
[2018-12-04 04:00] VITALS: BP 110/85
[2018-12-04] MEDS: MEROPENEM 500 MG in IV NS 0.9% 50 ML IV SCH ×3 (05:51→20:47)
--- NOTE | 2018-12-04 06:47 | NUR ---
TELE/RN NOTES PATIENT REMAINED IN BED, SLEEPING COMFORTABLY AT THIS TIME, EASILY AROUSABLE. NO S/S OF ACUTE DISTRESS NOTED, RESPIRATION EVEN AND UNLABORED, NO SOB NOTED, PATIENT A/O X4, DENIES ANY PAIN OR DISCOMFORT AT THIS TIME. ALL DUE MEDS GIVEN ORDERED, TOLERATED WELL. CALL LIGHT WITHIN EASY REACH. PATIENT ON TELE MONITORING WITH UNCONTROLLED A-FIBMD AWARE. SAFETY MAINTAINED, BED AT THE LOWEST LOCKED POSITION. WILL ENDORSE AM SHIFT NURSE FOR AFSHAN.
[2018-12-04 06:50] LABS: BASOPHILS % (AUTO) 0.1 % (0.0-2.0); EOSINOPHILS % (AUTO) 0.2 % (0.0-6.0); HEMATOCRIT 46 % (39-51); HEMOGLOBIN 14.8 g/dL (13.5-17.5); LYMPHOCYTES # (AUTO) 0.3 /CMM (0.8-4.8); MEAN CORPUSCULAR HGB CONC 32 g/dl (31.0-36.0); MEAN CORPUSCULAR VOLUME 92 fL (80-96); MONOCYTES # (AUTO) 0.6 /CMM (0.1-1.30); MONOCYTES % (AUTO) 5.8 % (2.0-12.0); NEUTROPHILS # (AUTO) 10.2 /CMM (1.8-8.9); NEUTROPHILS % (AUTO) 90.9 % (43.0-81.0); PLATELET COUNT (AUTO) 189 /CMM (150-450); RED BLOOD CELL COUNT(AUTO) 4.97 MIL/uL (4.5-6.0); WHITE BLOOD COUNT (AUTO) 11.2 K/uL (4.3-11.0)
[2018-12-04 07:14] LABS: ALBUMIN 2.2 g/dL (3.4-5.0); BILIRUBIN,TOTAL 2.5 mg/dL (0.2-1.0); CALCIUM, SERUM 7.7 mg/dL (8.5-10.1); MAGNESIUM 1.5 mg/dL (1.8-2.4); PHOSPHORUS 2.2 mg/dL (2.5-4.9); POTASSIUM 3.7 mmol/L (3.5-5.1); TOTAL PROTEIN, SERUM 6.3 g/dL (6.4-8.2)
--- NOTE | 2018-12-04 07:59 | NUR ---
RN OPENING NOTES PT IN BED. REPORT RECEIVED FROM BOX HINGE AND LOCK ATTACHER RN. PT IS AWAKE AND SEEMS IN A COOPERATIVE MOOD THIS MORNING. PT HAS IV FLUIDS RUNNING PER ORDER. PT NIXON DRAINING TO GRAVITY AMALIA COLORED URINE. PT CONTINUE TO REMOVE NC AND PLACE IT IN MOUTH STATES FOR HIM MORE COMFORTABLE THIS WAY. PT RECEIVING 1 L O2 VIA NC THROUGH MOUTH. IV SITES INTACT AND PATENT WITH NO SIGNS OF INFILTRATION OR REDNESS. BED IS LOCKED AND IN LOWEST POSITION WITH CALL LIGHT IN PLACE WILL CONTINUE TO MONITOR.
[2018-12-04 08:00] VITALS: BP 120/85
[2018-12-04] MEDS: APIXABAN 2.5 MG TABLET PO SCH ×2 (08:33→17:42)
[2018-12-04] MEDS ORDERED: K PHOS NEUTRAL 250 MG TABLET PO ONE (09:30)
[2018-12-04] MEDS: Magnesium 1GM/D5W 100ML PREMIX 100 ML IV SCH ×2 (10:29→11:32)
[2018-12-04 12:00] VITALS: BP 114/82
[2018-12-04] MEDS: METOPROLOL TARTRATE 50 MG TABLET PO SCH ×2 (12:48→17:43)
--- NOTE | 2018-12-04 16:23 | NUR ---
PT REFUSED 1600 VITALS CHECK STATES HE JUST WANT TO SLEEP.SPOKE WITH PT IN LENGTH ABOUT ALLOWING US TO MONITOR HOWEVER PT STILL REFUSED.
--- NOTE | 2018-12-04 19:00 | NUR ---
party plan selling distributor opening notes Received Pt from morning nurse. Pt is resting in bed comfortably. Pt is alert and oriented x3. Respiration is normal in 1 L NC. No SOB. No nausea or vomiting. Pt denies any pain at this time. No S/S of distress noted. Tele monitor showed a-fib Hr 94. IV sites at LAC # 20 is clean, intact, patent and SL. Burrows cath is intact, patent and draining dark yellow urine. Safety precautions is maintained all the time. Bed at low position, brakes locked, side rails upX3 and call light is within reach. Will continue to monitor.
--- NOTE | 2018-12-04 19:23 | NUR ---
RN CLOSING NOTES PT A-FIB ON MONITOR CURRENTLY RATE 118. PT IS ASLEEP IN BED WITH IV 20 GAUGE IN LFA SL. PT REFUSES MECHANICAL COMPRESSION DEVICES ON LOWER EXTREMITIES. PT IS A&OX4. PT HAD A BOWL MOVEMENT WHICH WAS SOFT AND FORMED. PT WISHES TO BE DNR MD MADE AWARE.PT ON 1L O2 VIA NC IN MOUTH PER PT'S COMFORT. HOB IS ELEVATED TO POSITION OF COMFORT. REPORT GIVEN TO MEDIA PROMOTER RN FOR AFSHAN.
--- NOTE | 2018-12-04 19:53 | NUR ---
painting machine operator notes Pt refused VS. Offered several times. Informed and educate the important of VS. Made aware benefits and risks. Pt keep refusing. Pt stated "My BP always good and I don't need it." Charge nurse informed and aware. Will try again later. Will continue to monitor.
[2018-12-05] VITALS: BP 116/81
[2018-12-05] MEDS: METOPROLOL TARTRATE 50 MG TABLET PO SCH ×4 (00:22→17:46)
--- NOTE | 2018-12-05 04:00 | NUR ---
freight elevator operator notes Pt refused VS @ 0400. Pt stated " Comeback at 0600." Offered multiple times. Made aware benefits and risks. Pt keep refusing. Will continue to monitor.
[2018-12-05] MEDS: MEROPENEM 500 MG in IV NS 0.9% 50 ML IV SCH (04:33)
[2018-12-05 06:00] VITALS: BP 114/79
[2018-12-05 06:16] LABS: BASOPHILS % (AUTO) 0.2 % (0.0-2.0); EOSINOPHILS % (AUTO) 0.6 % (0.0-6.0); HEMATOCRIT 47 % (39-51); HEMOGLOBIN 15.2 g/dL (13.5-17.5); LYMPHOCYTES # (AUTO) 0.3 /CMM (0.8-4.8); LYMPHOCYTES % (AUTO) 3.7 % (20.0-44.0); MEAN CORPUSCULAR HGB CONC 33 g/dl (31.0-36.0); MEAN CORPUSCULAR VOLUME 92 fL (80-96); MONOCYTES # (AUTO) 0.4 /CMM (0.1-1.30); MONOCYTES % (AUTO) 4.9 % (2.0-12.0); NEUTROPHILS # (AUTO) 7.5 /CMM (1.8-8.9); NEUTROPHILS % (AUTO) 90.6 % (43.0-81.0); PLATELET COUNT (AUTO) 194 /CMM (150-450); RED BLOOD CELL COUNT(AUTO) 5.08 MIL/uL (4.5-6.0); WHITE BLOOD COUNT (AUTO) 8.3 K/uL (4.3-11.0)
[2018-12-05 06:24] LABS: ALBUMIN 2.3 g/dL (3.4-5.0); CALCIUM, SERUM 7.9 mg/dL (8.5-10.1); CREATININE 0.9 mg/dL (0.6-1.3); MAGNESIUM 1.9 mg/dL (1.8-2.4); PHOSPHORUS 2.4 mg/dL (2.5-4.9); POTASSIUM 3.9 mmol/L (3.5-5.1); TOTAL PROTEIN, SERUM 6.5 g/dL (6.4-8.2)
--- NOTE | 2018-12-05 06:50 | NUR ---
pomologist closing notes Pt is resting in bed comfortably. Respiration is normal in 1 L NC. No SOB. No nausea or vomiting, No S/S of distress noted. IV sites at LAC is clean, intact, patent and SL. VS is stable. Tele monitor showed A-fib HR 114. Routine meds were given as ordered. Burrows cath is intact, patent and draining dark yellow urine 200 ml. Kept Pt clean, dry, warm and comfortable. Instructed to call. Safety precautions is maintained. Bed at low position, brakes locked, side rails upX3 and call light is within reach. Will endorse to morning nurse for AFSHAN.
[2018-12-05 08:00] VITALS: BP 130/63
[2018-12-05] MEDS: HYDROCODONE/APAP 5/325MG 1 EACH TABLET PO PRN (08:30)
--- NOTE | 2018-12-05 08:30 | NUR ---
rn note pt aox3, co pain in hands and feet, on telemetry afib 112, no sob, cough is productive, on room air O2 saturation 87-90%, recommended to put NC to the nose, but resused stating "I take my chances", hands and feet are cold and bluish color, skin is warm and dry, pale. bp and temp wml, poor appetite, ate only few bites and drank grape juice. co about colón catheter discomfort, and wishes it was removed. Safety measures are in place, call light within reach, will follow up with MD. pt is asking for glasses. no belongings listed and no belongings at bedside present, will f/u with [facility].
[2018-12-05] MEDS: APIXABAN 2.5 MG TABLET PO SCH ×2 (09:27→17:48)
[2018-12-05] MEDS ORDERED: K PHOS NEUTRAL 250 MG TABLET PO ONE (09:30)
[2018-12-05] MEDS ORDERED: IOHEXOL-300 100 ML VIAL IV ONE (11:25)
[2018-12-05] MEDS ORDERED: CT SWABBABLE VALVE TRANS SET 1 EA INFUS.SET MC ONE (11:25)
[2018-12-05] MEDS ORDERED: IV NS 0.9% 250 ML IV ONE (11:25)
[2018-12-05 12:00] VITALS: BP 109/77
[2018-12-05] MEDS: MEROPENEM 1 G in IV NS 0.9% 100 ML IV SCH ×2 (12:34→22:20)
[2018-12-05 16:00] VITALS: BP 123/73
--- NOTE | 2018-12-05 16:14 | NUR ---
rn note spsoke with LAURYN Cerda from [facility], about pt's glasses, she stated "I will put a note for student services rep to bring the glasses to [facility]". will endorse to next shift.
--- NOTE | 2018-12-05 16:47 | NUR ---
rn note spoke with LUCERO Salgado, reported about CT abd/pelvis results, especially about right lower lobe collapse, and b/l pleural effusion R>L. reminded about home medication needs to be reviewed. no new orders at this time.
[2018-12-05 20:00] VITALS: BP 103/82
--- NOTE | 2018-12-05 20:00 | NUR ---
RN Notes Received pt a/ox3, co pain and tingling in hands and feet, on telemetry afib 104, no sob, on room air O2 saturation 93%, recommended to put NC to the nose, but refused stating " I am smart and I know what I am doing" skin is pale. Safety measures are in place, call light within reach. hob elevated, no sob, no pain noted at this time. will continue to monitor patient closely.
--- NOTE | 2018-12-05 22:00 | NUR ---
rn notes patient refused his nc and o2. rn hematologyfrank Wright notified . all risks and benefits has been explained to the patient and he is still refusing it. will try again later.
[2018-12-06] VITALS (7 sets, daily range): BP systolic 103–141; BP diastolic 72–96
--- NOTE | 2018-12-06 | NUR ---
rn notes patient refused his nc and o2 again . devulcanizer chargerfrank Wright again notified . all risks and benefits has been explained to the patient and he is still refusing it. will try again later.
[2018-12-06] MEDS: METOPROLOL TARTRATE 50 MG TABLET PO SCH ×4 (06:00→18:00)
[2018-12-06] MEDS: MEROPENEM 1 G in IV NS 0.9% 100 ML IV SCH ×3 (06:10→21:36)
[2018-12-06 06:14] LABS: BASOPHILS % (AUTO) 0.5 % (0.0-2.0); EOSINOPHILS % (AUTO) 0.7 % (0.0-6.0); HEMATOCRIT 46 % (39-51); LYMPHOCYTES # (AUTO) 0.4 /CMM (0.8-4.8); LYMPHOCYTES % (AUTO) 5.4 % (20.0-44.0); MEAN CORPUSCULAR HGB CONC 32 g/dl (31.0-36.0); MEAN CORPUSCULAR VOLUME 92 fL (80-96); MONOCYTES # (AUTO) 0.6 /CMM (0.1-1.30); MONOCYTES % (AUTO) 7.4 % (2.0-12.0); NEUTROPHILS # (AUTO) 7.1 /CMM (1.8-8.9); PLATELET COUNT (AUTO) 193 /CMM (150-450); RED BLOOD CELL COUNT(AUTO) 5.04 MIL/uL (4.5-6.0); WHITE BLOOD COUNT (AUTO) 8.2 K/uL (4.3-11.0)
[2018-12-06 06:38] LABS: ALBUMIN 2.4 g/dL (3.4-5.0); BILIRUBIN,TOTAL 0.8 mg/dL (0.2-1.0); CALCIUM, SERUM 8.1 mg/dL (8.5-10.1); CREATININE 0.9 mg/dL (0.6-1.3); MAGNESIUM 1.8 mg/dL (1.8-2.4); PHOSPHORUS 2.5 mg/dL (2.5-4.9); POTASSIUM 3.5 mmol/L (3.5-5.1); TOTAL PROTEIN, SERUM 6.5 g/dL (6.4-8.2)
[2018-12-06] MEDS: APIXABAN 2.5 MG TABLET PO SCH ×2 (09:15→16:37)
[2018-12-06] MEDS: ENSURE ENLIVE CHOC 237 ML CAN PO SCH ×2 (12:29→16:38)
[2018-12-06] MEDS ORDERED: NA PHOS,M-B/NA PHOS,DI-BA 1 EA ENEMA RC PRN (12:30)
[2018-12-06] MEDS: HYDROCODONE/APAP 5/325MG 1 EACH TABLET PO PRN (12:30)
[2018-12-06] MEDS ORDERED: BISACODYL SUPP (10 MG) 10 MG/SUPP.RECT SUPP.RECT RC PRN (12:30)
[2018-12-06] MEDS: DIGOXIN INJ 0.5 MG/2 ML AMPUL IV SCH ×2 (12:32→18:00)
[2018-12-06] MEDS: GABAPENTIN 300 MG CAPSULE PO SCH ×2 (13:39→16:36)
[2018-12-06] MEDS: CLOTRIMAZOLE 1% 15 GM TUBE TP SCH ×2 (14:47→16:36)
--- NOTE | 2018-12-06 19:36 | NUR ---
LICENSED SALES ASSISTANT CLOSING PATIENT REMAINS A/Ox4. ON ROOM AIR, SPO2 92%, NO RESPIRATORY DISTRESS. DOES NOT WANT OXYGEN AT THIS TIME, EDUCATION PROVIDED. GLASSES BROUGHT BY FRIEND CLAUDIA. PATIENT SPOKE TO SPRINKLER INSPECTOR FOX AT FACILITY, PER PATIENT THEY ARE GOING TO BRING MONEY TOMORROW AM. DIG GIVEN, NO ADVERSE REACTIONS NOTED. TELE MONITOR ATTACHED, A FIB HR 80. NO S/S STROKE NOTED AT END OF SHIFT. IV C/D/I, PATENT. CALL LIGHT WITHIN REACH, ENDORSED TO NOC RN
[2018-12-06] MEDS: ATORVASTATIN 10 MG TABLET PO SCH (21:36)
[2018-12-07] VITALS (7 sets, daily range): BP systolic 118–135; BP diastolic 70–85
[2018-12-07] MEDS: DIGOXIN INJ 0.5 MG/2 ML AMPUL IV SCH (00:05)
[2018-12-07] MEDS: METOPROLOL TARTRATE 50 MG TABLET PO SCH ×4 (00:07→17:02)
[2018-12-07] MEDS: MEROPENEM 1 G in IV NS 0.9% 100 ML IV SCH ×3 (05:47→20:34)
--- NOTE | 2018-12-07 07:20 | NUR ---
FINANCIAL ASSISTANCE SPECIALIST OPENING NOTE RECEIVED REPORT FROM [facility] SHIFT NURSE. PT AWAKE IN BED, ALERT AND ORIENTED X 4, ON ROOM AIR, NO SIGNS OF RESPIRATORY DISTRESS NOTED, SATURATING AT 90%- REFUSING TO WEAR NASAL CANULA. IV SITE ON LEFT FOREARM G22 INTACT, PATENT. ON ADJUSTER PIANO ACTION AFIB HR 80. INTRODUCED SELF TO PT, DISCUSSED PLAN OF CARE. BED IN LOW POSITION, LOCKED, CALL LIGHT WITHIN REACH.
[2018-12-07] MEDS: ENSURE ENLIVE CHOC 237 ML CAN PO SCH ×3 (08:00→16:52)
--- NOTE | 2018-12-07 08:15 | NUR ---
PT REFUSED BLOOD DRAW
[2018-12-07] MEDS ORDERED: ASPIRIN 81 MG TAB.CHEW PO SCH (09:00)
[2018-12-07] MEDS: CLOTRIMAZOLE 1% 15 GM TUBE TP SCH ×2 (09:49→16:52)
[2018-12-07] MEDS: GABAPENTIN 300 MG CAPSULE PO SCH ×3 (09:49→16:54)
[2018-12-07 12:04] LABS: BASOPHILS % (AUTO) 0.7 % (0.0-2.0); EOSINOPHILS % (AUTO) 1.6 % (0.0-6.0); HEMATOCRIT 45 % (39-51); HEMOGLOBIN 14.6 g/dL (13.5-17.5); LYMPHOCYTES # (AUTO) 0.5 /CMM (0.8-4.8); LYMPHOCYTES % (AUTO) 8.7 % (20.0-44.0); MEAN CORPUSCULAR HGB CONC 33 g/dl (31.0-36.0); MEAN CORPUSCULAR VOLUME 92 fL (80-96); MONOCYTES # (AUTO) 0.5 /CMM (0.1-1.30); MONOCYTES % (AUTO) 8.7 % (2.0-12.0); NEUTROPHILS # (AUTO) 4.8 /CMM (1.8-8.9); NEUTROPHILS % (AUTO) 80.3 % (43.0-81.0); PLATELET COUNT (AUTO) 179 /CMM (150-450); RED BLOOD CELL COUNT(AUTO) 4.91 MIL/uL (4.5-6.0)
[2018-12-07 12:16] LABS: ALBUMIN 2.1 g/dL (3.4-5.0); BILIRUBIN,TOTAL 0.6 mg/dL (0.2-1.0); CALCIUM, SERUM 8.6 mg/dL (8.5-10.1); CREATININE 0.8 mg/dL (0.6-1.3); MAGNESIUM 1.5 mg/dL (1.8-2.4); PHOSPHORUS 3.1 mg/dL (2.5-4.9); POTASSIUM 3.6 mmol/L (3.5-5.1); TOTAL PROTEIN, SERUM 5.8 g/dL (6.4-8.2)
[2018-12-07] MEDS: DIGOXIN 0.125 MG TABLET PO SCH (13:26)
[2018-12-07] MEDS: APIXABAN 5 MG TABLET PO SCH (16:56)
--- NOTE | 2018-12-07 19:23 | NUR ---
ENGINEERING MGR CLOSING NOTE PT AWAKE IN BED, ALERT AND ORIENTED X 4, ON ROOM AIR, NO SIGNS OF RESPIRATORY DISTRESS NOTED, SATURATING AT 90%- REFUSING TO WEAR NASAL CANULA. IV SITE ON LEFT FOREARM G22 INTACT, PATENT. ON TELECASTING TECHNICIAN AFIB HR 79. PROVIDED SAFETY AND COMFORT TO PT THROUGHOUT SHIFT, ALL DUE MEDS GIVEN, BED IN LOW POSITION, LOCKED, CALL LIGHT WITHIN REACH. WILL ENDORSE TO NOC SHIFT NURSE.
--- NOTE | 2018-12-07 19:34 | NUR ---
CUSTOMER CARE VOICE CONSULTANT OPENING NOTES RECEIVED PT IN BED, AWAKE ALERT ORIENTED X4, BREATHING EVEN AND LABORED REFUSING TO USE NC, SATURATING IN THE HIGH 90s. NO COMPLAINT OF PAIN OR DISCOMFORT AT THIS TIME. SOCCER COACH IN PLACE, AFIB 70s. IV ACCESS ON THE L FAR 22G SL. BED IN LOWEST LOCKED POSITION, CALL LIGHT WITHIN REACH AT ALL TIMES, WILL CONTINUE TO MONITOR FREQUENTLY.
[2018-12-07] MEDS: ATORVASTATIN 10 MG TABLET PO SCH (21:52)
--- NOTE | 2018-12-07 23:49 | NUR ---
FEDERAL AGENT NOTES- PAGED MD FOR LOW MAG OF 1.5, TO RECEIVED AND CARRIED OUT
[2018-12-08] VITALS: BP 129/66
[2018-12-08] MEDS ORDERED: MAGNESIUM OXIDE 400 MG TABLET PO ONE
[2018-12-08] MEDS: METOPROLOL TARTRATE 50 MG TABLET PO SCH ×5 (00:21→23:45)
[2018-12-08 04:00] VITALS: BP 132/62
[2018-12-08] MEDS: MEROPENEM 1 G in IV NS 0.9% 100 ML IV SCH ×3 (05:15→20:53)
--- NOTE | 2018-12-08 06:30 | NUR ---
FOUNDRY TECHNICIAN CLOSING NOTES PT REMAINS IN BED, AWAKE ALERT ORIENTED X4, BREATHING EVEN AND LABORED REFUSING TO USE NC, SATURATING IN THE HIGH 90s. NO COMPLAINT OF PAIN OR DISCOMFORT AT THIS TIME. CUT PRESSMAN IN PLACE, AFIB 80s. IV ACCESS ON THE L FAR 22G SL. BED IN LOWEST LOCKED POSITION, CALL LIGHT WITHIN REACH AT ALL TIMES, WILL ENDORSE TO DAY NURSE FOR AFSHAN
[2018-12-08 06:32] LABS: BASOPHILS % (AUTO) 0.6 % (0.0-2.0); EOSINOPHILS % (AUTO) 2.5 % (0.0-6.0); HEMATOCRIT 45 % (39-51); HEMOGLOBIN 14.9 g/dL (13.5-17.5); LYMPHOCYTES # (AUTO) 0.6 /CMM (0.8-4.8); MEAN CORPUSCULAR HGB CONC 33 g/dl (31.0-36.0); MEAN CORPUSCULAR VOLUME 92 fL (80-96); MONOCYTES # (AUTO) 0.6 /CMM (0.1-1.30); MONOCYTES % (AUTO) 9.1 % (2.0-12.0); NEUTROPHILS # (AUTO) 5.2 /CMM (1.8-8.9); NEUTROPHILS % (AUTO) 78.8 % (43.0-81.0); PLATELET COUNT (AUTO) 201 /CMM (150-450); RED BLOOD CELL COUNT(AUTO) 4.95 MIL/uL (4.5-6.0); WHITE BLOOD COUNT (AUTO) 6.7 K/uL (4.3-11.0)
[2018-12-08 07:22] LABS: CALCIUM, SERUM 9.2 mg/dL (8.5-10.1); CREATININE 0.9 mg/dL (0.6-1.3); MAGNESIUM 1.5 mg/dL (1.8-2.4); PHOSPHORUS 4.1 mg/dL (2.5-4.9); POTASSIUM 4.2 mmol/L (3.5-5.1)
--- NOTE | 2018-12-08 07:28 | NUR ---
RN OPENING NOTES RECEIVED PATIENT RESTING IN BED COMFORTABLY, DENIES ANY PAIN OR DISCOMFORT AT THIS TIME. HE IS AOX4, VERBAL, AND AMBULATORY. SKIN IS INTACT. CHEST RISES AND FALLS EVENLY. LFA 22 G IS PATENT AND INTACT. SAFETY MEASURES HAVE BEEN IMPLEMENTED, CALL LIGHT IS WITHIN REACH, BED IS IN LOWEST AND LOCKED POSITION, SIDE RIALS UP X2, WILL CONTINUE TO MONITOR FOR ANY CHANGES
[2018-12-08 08:00] VITALS: BP 142/83
[2018-12-08] MEDS: ENSURE ENLIVE CHOC 237 ML CAN PO SCH ×3 (08:23→17:11)
[2018-12-08] MEDS: GABAPENTIN 300 MG CAPSULE PO SCH ×3 (08:38→17:11)
[2018-12-08] MEDS: APIXABAN 5 MG TABLET PO SCH ×2 (08:38→17:10)
[2018-12-08] MEDS: CLOTRIMAZOLE 1% 15 GM TUBE TP SCH ×2 (08:39→17:14)
[2018-12-08] MEDS: Magnesium 1GM/D5W 100ML PREMIX 100 ML IV SCH ×2 (09:18→10:18)
--- NOTE | 2018-12-08 10:01 | NUR ---
WOUND CARE CONSULT WOUND CARE RECEIVED CONSULT FOR GROIN, SACRAL REDNESS, AND LEFT LATERAL CHEST RASH. WOUND CARE WILL DEFER CONSULT AND TREATMENT PLANS TO PLASTIC SURGICAL TEAM WHO ARE CURRENTLY FOLLOWING THIS PATIENT. PATIENT WITH CLAUDE AT 12, ALL PRESSURE ULCER PREVENTION MEASURES ARE NOTED TO BE IN PLACE AT THIS TIME. WILL SEE PRN.
[2018-12-08 12:09] LABS: *SPE A/G RATIO 0.8 (0.7-1.7); *SPE ALBUMIN 2.2 g/dL (2.9-4.4); *SPE ALPHA-1-GLOBULIN 0.3 g/dL (0.0-0.4); *SPE ALPHA-2-GLOBULIN 0.8 g/dL (0.4-1.0); *SPE BETA GLOBULIN 0.8 g/dL (0.7-1.3); *SPE GLOBULIN, TOTAL 2.9 g/dL (2.2-3.9); *SPE M-SPIKE 0.5 g/dL (Not Observed); *SPEGAMMA GLOBULIN 1.1 g/dL (0.4-1.8)
[2018-12-08] MEDS: DIGOXIN 0.125 MG TABLET PO SCH (12:33)
[2018-12-08 16:00] VITALS: BP_SYST 136; BP_DIAS 72; BP_DIAS 74
--- NOTE | 2018-12-08 19:08 | NUR ---
RN CLOSING NOTES PATIENT IS RESTING COMFORTABLY IN BED, DENIES ANY PAIN OR DISCOMFORT AT THIS TIME. NO ACUTE CHANGES OCCURRED THROUGHOUT THE SHIFT, VITAL SIGNS ARE STABLE, PT NEEDS HAVE BEEN MET. SAFETY MEASURES HAVE BEEN IMPLEMENTED, CALL LIGHT IS WITHIN REACH, BED IS IN LOWEST AND LOCKED POSITION, SIDE RAILS UP X2, PT HAS BEEN ENDORSED TO NIGHTSHIFT RN FOR CONTINUITY OF CARE.
--- NOTE | 2018-12-08 19:46 | NUR ---
MS RN NOTE: RECEIVED PT ON BED ALERT AND ORIENTED X3. ABLE TO MAKE NEEDS KNOWN. NO APPARENT DISTRESS NOTED. DENIES PAIN AND DISCOMFORT AT THIS TIME. ON ROOM AIR, BREATHING EVEN AND UNLABORED WITH NORMAL RESPIRATIONS. IV ON LEFT FOREARM #22 INTACT AND PATENT, FLUSHING WELL. NO SIGNS/SYMPTOMS OF INFILTRATION NOTED. CALL LIGHT PLACED WITHIN REACH. KEPT CLEAN, DRY AND COMFORTABLE. SAFETY AND FALL PRECAUTIONS OBSERVED AND MAINTAINED. WILL CONTINUE TO MONITOR PT.
[2018-12-08 20:00] VITALS: BP 122/70
[2018-12-08 20:39] VITALS: BP_SYST 122; BP_SYST 151; BP_DIAS 70; BP_DIAS 71
[2018-12-08] MEDS: ATORVASTATIN 10 MG TABLET PO SCH (21:42)
[2018-12-09 04:00] VITALS: BP 120/76
[2018-12-09 05:51] VITALS: BP 120/76
[2018-12-09] MEDS: MEROPENEM 1 G in IV NS 0.9% 100 ML IV SCH ×2 (05:51→12:58)
[2018-12-09] MEDS: METOPROLOL TARTRATE 50 MG TABLET PO SCH ×2 (06:15→12:57)
--- NOTE | 2018-12-09 06:45 | NUR ---
MS RN NOTE: NO CHANGES NOTED THROUGHOUT THE SHIFT. NO APPARENT DISTRESS NOTED. DENIES PAIN AND DISCOMFORT AT THIS TIME. ON ROOM AIR, BREATHING EVEN AND UNLABORED WITH NORMAL RESPIRATIONS. IV ON LEFT FOREARM #20 INTACT AND PATENT, FLUSHING WELL. KEPT CLEAN, DRY AND COMFORTABLE. CALL LIGHT PLACED WITHIN REACH. SAFETY AND FALL PRECAUTIONS OBSERVED AND MAINTAINED. WILL ENDORSE TO DAY SHIFT RN FOR CONTINUITY OF CARE.
[2018-12-09 08:00] VITALS: BP 140/81
--- NOTE | 2018-12-09 08:00 | NUR ---
MS RN NOTE: RECEIVED PT IN NO APPARENT DISTRESS NOTED. DENIES PAIN AND DISCOMFORT AT THIS TIME. ON ROOM AIR, BREATHING EVEN AND UNLABORED WITH NORMAL RESPIRATIONS. IV ON LEFT FOREARM #20 INTACT AND PATENT, FLUSHING WELL. KEPT CLEAN, DRY AND COMFORTABLE. CALL LIGHT PLACED WITHIN REACH. SAFETY AND FALL PRECAUTIONS OBSERVED AND MAINTAINED.
[2018-12-09 09:00] VITALS: BP 140/81
[2018-12-09] MEDS ORDERED: Digoxin PO (10:01)
[2018-12-09] MEDS ORDERED: LACT-54 PO (10:01)
[2018-12-09] MEDS ORDERED: MERO1VIA IV (10:01)
[2018-12-09] MEDS ORDERED: APIX5TAB PO (10:01)
[2018-12-09] MEDS ORDERED: GABA300C PO (10:01)
[2018-12-09] MEDS: ENSURE ENLIVE CHOC 237 ML CAN PO SCH ×2 (10:12→12:05)
[2018-12-09] MEDS: HYDROCODONE/APAP 5/325MG 1 EACH TABLET PO PRN (10:13)
[2018-12-09] MEDS: GABAPENTIN 300 MG CAPSULE PO SCH ×2 (10:14→13:21)
[2018-12-09] MEDS: APIXABAN 5 MG TABLET PO SCH (10:15)
[2018-12-09] MEDS: CLOTRIMAZOLE 1% 15 GM TUBE TP SCH (12:05)
[2018-12-09 12:57] VITALS: BP 123/84
[2018-12-09] MEDS: DIGOXIN 0.125 MG TABLET PO SCH (13:21)
--- NOTE | 2018-12-09 14:10 | NUR ---
ADEBAYO MIDLINE WAS INSERTED BY AGNES ARMENDARIZ AND MIDLINE NURSE TODAY.PT TOLERATED WELL.
--- NOTE | 2018-12-09 17:00 | NUR ---
DISCHARGE INSTRUCTIONS AND MED RECONCILIATION GIVEN TO THE DEVELOPMENTAL EDUCATION INSTRUCTOR/PT.REPORT CALLED IN TO [facility] RN YARDING AND FOLDING MACHINE OPERATOR,MESHA.IV H/L TO LFA G 20 AND ADEBAYO MIDLINE REMAINS INTACT WITH NO S/S OF INFILTRATION NOTED FOR CONTINUATION OF MERREM IVPB 1 GM Q 8 HRS TILL Dec FOR SEPSIS SECONDARY TO BACTEREMIA RECOMMENDED BY ID.PT DENIES ANY PAIN OR DISTRESS.WITH STABLE V/S.
== END 2018-12-09 16:50 | DRG 871 ==
LOC: ER 04:02 → TELE1 06:31 → TELE-TD 07:39 → TELE1 08:46 → MEDSG1 12-08 09:27
PROVIDERS: ADMIT Hospitalist; ATTEND Student in an Organized Health Care Education/Training Program
PROC: 05H533Z Insertion of Infusion Device into Right Subclavian Vein, Percutaneous Approach (ICD-10-PCS; principal; 2018-12-09)
DX: A41.9 Sepsis, unspecified organism (principal); I21.A1 Myocardial infarction type 2; N17.0 Acute kidney failure with tubular necrosis; I50.22 Chronic systolic (congestive) heart failure; I42.9 Cardiomyopathy, unspecified; E44.0 Moderate protein-calorie malnutrition; D68.59 Other primary thrombophilia; I48.19 Other persistent atrial fibrillation; Z16.12 Extended spectrum beta lactamase (ESBL) resistance; J44.9 Chronic obstructive pulmonary disease, unspecified; I73.9 Peripheral vascular disease, unspecified; K21.9 Gastro-esophageal reflux disease without esophagitis; I11.0 Hypertensive heart disease with heart failure; F03.90 Unspecified dementia, unspecified severity, without behavioral disturbance, psychotic disturbance, mood disturbance, and anxiety; G89.29 Other chronic pain; L21.9 Seborrheic dermatitis, unspecified; Z74.01 Bed confinement status; G62.9 Polyneuropathy, unspecified; L98.8 Other specified disorders of the skin and subcutaneous tissue; L30.4 Erythema intertrigo; R74.0 Nonspecific elevation of levels of transaminase and lactic acid dehydrogenase [LDH]; Z79.01 Long term (current) use of anticoagulants; E88.09 Other disorders of plasma-protein metabolism, not elsewhere classified; M62.50 Muscle wasting and atrophy, not elsewhere classified, unspecified site; Z68.26 Body mass index [BMI] 26.0-26.9, adult; K74.60 Unspecified cirrhosis of liver; B96.20 Unspecified Escherichia coli [E. coli] as the cause of diseases classified elsewhere; Z87.891 Personal history of nicotine dependence; Z90.49 Acquired absence of other specified parts of digestive tract; Z96.641 Presence of right artificial hip joint
CPT/HCPCS: 36415; 36569; 71045-TC; 76700-TC; 76770-TC; 80048-TC; 80053-TC; 80061-TC; 81000-TC; 82140-TC; 82247-TC; 82248-TC; 82570-TC; 82962-TC; 83605-TC; 83735-TC; 83880; 84100-TC; 84155; 84155-TC; 84165; 84300-TC; 84443-TC; 84484-TC; 85025-TC; 85730-TC; 87040-TC; 87081-TC; 87086-TC; 87186-TC; 93307-TC; 93926-TC; 97112-TC; 97530-TC; A4216; G0378; J1160; J1956; J2185; J2405; J3475; J3490; J7030; J7040; J7050; Q9967

== ENCOUNTER 2019-10-02 18:18 | Inpatient (IN) | payer MEDICARE, OTHER ==
[~2019-10-02] VITALS: Ht 182.9 cm; Wt 97.5 kg
[~2019-10-02 18:18] MED LIST changes: +ACET-907 PO; -AMIN30LI4 PO; -APIX2.5T PO; +APIX5TAB PO; +CHOL20004 PO; +Digoxin PO; +GABA300C PO; +LACT-54 PO; +MERO1VIA IV; -MERO500V21 IV; -METH4TAB3 PO; -MORP15TA10 PO; +NORT25CA PO; -PRED50TA PO; -TRAM50TA2 PO
[2019-10-02 19:10] LABS: BASOPHILS # (AUTO) 0.1 /CMM (0.0-0.2); BASOPHILS % (AUTO) 0.9 % (0.0-2.0); EOSINOPHILS % (AUTO) 0.6 % (0.0-6.0); HEMATOCRIT 51 % (39-51); HEMOGLOBIN 16.4 g/dL (13.5-17.5); LYMPHOCYTES # (AUTO) 0.6 /CMM (0.8-4.8); LYMPHOCYTES % (AUTO) 5.5 % (20.0-44.0); MEAN CORPUSCULAR HGB CONC 32 g/dl (31.0-36.0); MEAN CORPUSCULAR VOLUME 93 fL (80-96); MONOCYTES % (AUTO) 8.8 % (2.0-12.0); NEUTROPHILS # (AUTO) 9.2 /CMM (1.8-8.9); NEUTROPHILS % (AUTO) 84.2 % (43.0-81.0); PLATELET COUNT (AUTO) 313 /CMM (150-450); RED BLOOD CELL COUNT(AUTO) 5.46 MIL/uL (4.5-6.0); WHITE BLOOD COUNT (AUTO) 10.9 K/uL (4.3-11.0)
--- NOTE | 2019-10-02 19:10 | NUR ---
MEDARDO FROM [facility]. TO ER BED 5. AAOX3. BREATHING EVEN AND UNLABORED BUT NOTED WITH O2 SAT OF 77% ON RA. PLACED ON FACE MASK AT 6LPM SATIING @ 98%. BED BOUND. BROUGHT IN FOR DESATURATION AT THE FACILITY. PT WAS REPORTED TO HAVE AN O2 SAT OF 78%. PT NOTED TACHYCARDIC IN THE 110S. PT IS NOTED WITH BILAT FOOT BLUISH DISCOLORATION. WAS AT THE BEDSIDE FOR EVAL. IV LINE OBTAINED ON RFA 18G. BLOOD DRAWN AND GIVEN TO DIRECTOR FOOD SAFETY AT BEDSIDE.
[2019-10-02 19:30] LABS: ALANINE AMINOTRANSFERASE 16 U/L (12-78); ALBUMIN 2.6 g/dL (3.4-5.0); ALKALINE PHOSPHATASE 83 U/L (46-116); ASPARTATE AMINOTRANSFERASE 22 U/L (15-37); B-TYPE NATRIURETIC PEPTIDE 2355 PG/ML (0-125); CALCIUM, SERUM 9.4 mg/dL (8.5-10.1); CARBON DIOXIDE 23 mmol/L (21-32); CHLORIDE 102 mmol/L (98-107); GLUCOSE 109 mg/dL (74-106); POTASSIUM 4.9 mmol/L (3.5-5.1); SODIUM SERUM 140 mmol/L (136-145); TOTAL PROTEIN, SERUM 7.6 g/dL (6.4-8.2)
[2019-10-02 19:31] LABS: CREATININE 7.5 mg/dL (0.6-1.3); UREA NITROGEN, BLOOD 112 mg/dL (7-18)
--- NOTE | 2019-10-02 19:40 | NUR ---
CHEST XRAY DONE AT BEDSIDE
--- NOTE | 2019-10-02 19:44 | NUR ---
RT AT BEDSIDE FOR ABG
[2019-10-02] MEDS ORDERED: IV NS 0.9% 500 ML BAG IV ONE (20:00)
[2019-10-02 20:01] LABS: CREATINE KINASE, TOTAL 79 U/L (39-308); FERRITIN 648 ng/mL (8-388)
[2019-10-02 20:06] LABS: C-REACTIVE PROTEIN 18.4 mg/dL (0.0-0.9)
--- NOTE | 2019-10-02 21:13 | NUR ---
ROOM ASSIGNMENT: 102 TELE
[2019-10-02] MEDS ORDERED: HYDROCODONE/APAP 5/325MG TABLET PO PRN (21:30)
[2019-10-02] MEDS ORDERED: MAGNESIUM HYDROXIDE 30 ML UDC PO PRN ×2 (21:30)
[2019-10-02] MEDS ORDERED: NA PHOS,M-B/NA PHOS,DI-BA 1 EA ENEMA RC PRN (21:30)
[2019-10-02] MEDS ORDERED: ALBUTEROL SULFATE INH 18 GM HFA.AER.AD IH PRN (21:30)
[2019-10-02] MEDS ORDERED: ZOLPIDEM TARTRATE 5 MG TABLET PO PRN (21:30)
[2019-10-02] MEDS ORDERED: BISACODYL SUPP (10 MG) 10 MG/SUPP.RECT SUPP.RECT RC PRN (21:30)
[2019-10-02] MEDS ORDERED: ONDANSETRON HCL/PF 4 MG/2 ML VIAL IVP PRN (21:30)
[2019-10-02] MEDS ORDERED: Z GUARD REMEDY 2 OZ OINT TP PRN (21:30)
[2019-10-02] MEDS ORDERED: MAG HYDROX/AL HYDROX/SIMETH 30 ML UDC PO PRN (21:30)
[2019-10-02] MEDS ORDERED: ACETAMINOPHEN 325 MG TABLET PO PRN (21:30)
[2019-10-02] MEDS ORDERED: MORPHINE SULFATE INJ 2 MG/ML DISP.SYRIN IV PRN (21:30)
[2019-10-02 21:34] LABS: ABG PCO2 41.1 mmHg (35.0-45.0); ABG PH 7.305 (7.350-7.450); ABG PO2 36.5 mmHg (75.0-100.0); AaDO2 230.4 mmHg; SITE, ABG Right Radial; VENT MODE, BG NC 6LPM O2
--- NOTE | 2019-10-02 21:37 | NUR ---
REPORT GIVEN TO LAURYN ROSADO FOR AFSHAN.
[2019-10-02 22:00] VITALS: BP 119/71
[2019-10-02] MEDS ORDERED: ATORVASTATIN 10 MG TABLET PO SCH (22:00)
--- NOTE | 2019-10-02 22:00 | NUR ---
COMMISSARY OFFICERVARNISH MAKER NOTES PATIENT TRANSFERRED FROM ER IN STABLE CONDITION. A/OX2-3. TELE MONITOR READING A-FIB, HEART RATE IRREGULAR 105-110. ON 6L NC; NO S/S OF ACUTE RESPIRATORY DISTRESS; SPO2 100%. PATIENT DENIES ANY SOB OR PAIN AT THIS TIME; BREATHING IS EVEN AND UNLABORED. IV PRESENT ON RIGHT FA, SIZE 18, INTACT & PATENT, HEP LOCKED. PATIENT UNABLE TO AMBULATE; B/L LEGS CONTRACTED. SKIN ASSESSMENT AND PHOTOS COMPLETED AND PLACED IN CHART. NO BELONGINGS PRESENT WITH PATIENT. CONTACT/DROPLET PRECAUTIONS IN PLACE FOR R/O COVID 19; PER ER REPORT PATIENT WAS TESTED POSITIVE AT SNF; TEST RESULTS FROM SNF NOT FOUND IN CHART; PCR COVID TEST PENDING. ADMISSION ORDERS RECEIVED FROM [facility] EXTRUDER OPERATOR JYOTSNA TEMPLE. SAFETY MEASURES IN PLACE AND PATIENT'S NEEDS MET. WILL CONTINUE TO MONITOR.
--- NOTE | 2019-10-02 22:08 | NUR ---
PT TRANSPORTED TO UNIT ON GURNEY WITH EMT AND RN AT BEDSIDE W/ ACLS PROTOCOL. NAD NOTED DURING TRANSPORT.
[2019-10-02 22:13] LABS: BILIRUBIN,DIRECT 0.5 mg/dL (0.0-0.2)
[2019-10-02 22:30] LABS: D-DIMER 20.76 mg/L(FEU (0.17-0.50)
[2019-10-02] MEDS: NORTRIPTYLINE HCL 25 MG CAPSULE PO SCH (22:34)
--- NOTE | 2019-10-02 22:45 | NUR ---
[id number] AGNES ALVARENGA NOTIFIED OF REPEAT CRITICAL LACTIC ACID 2.1 WITH NO ORDER MADE.
[2019-10-03] VITALS: BP 124/85
[2019-10-03] MEDS: IV 1/2NS 1000 ML 1,000 ML IV PRN (01:28)
[2019-10-03 04:00] VITALS: BP 131/98
--- NOTE | 2019-10-03 06:45 | NUR ---
SLEDGER CLOSING NOTES PATIENT AWAKE IN BED. A/OX2-3. ON 6L NC. NO S/S OF ACUTE RESPIRATORY DISTRESS; BREATHING IS EVEN AND UNLABORED. NO C/O PAIN AT THIS TIME. TELE MONITOR READING A-FIB, HEART RATE 110-120. IV ON RIGHT FA, SIZE 18 REMAINS INTACT & PATENT WITH 1/2 NS RUNNING AT 75 ML/HR. URINE COLLECTED; AWAITING FOR ENGRAVER HAND SOFT METALS TO CLOUD SYSTEMS ADMINISTRATOR SPECIMEN. SAFETY MEASURES IN PLACE AND PATIENT'S NEEDS MET. BED LOCKED, ALARM ON, SIDE RAIL X3, CALL LIGHT WITHIN REACH. WILL ENDORSE TO DAY SHIFT RN PLAN OF CARE.
[2019-10-03 06:46] LABS: BASOPHILS % (AUTO) 0.3 % (0.0-2.0); EOSINOPHILS % (AUTO) 0.3 % (0.0-6.0); HEMATOCRIT 51 % (39-51); LYMPHOCYTES # (AUTO) 0.6 /CMM (0.8-4.8); LYMPHOCYTES % (AUTO) 4.4 % (20.0-44.0); MEAN CORPUSCULAR HGB CONC 32 g/dl (31.0-36.0); MEAN CORPUSCULAR VOLUME 93 fL (80-96); MONOCYTES # (AUTO) 1.3 /CMM (0.1-1.30); MONOCYTES % (AUTO) 10.5 % (2.0-12.0); NEUTROPHILS # (AUTO) 10.7 /CMM (1.8-8.9); NEUTROPHILS % (AUTO) 84.5 % (43.0-81.0); PLATELET COUNT (AUTO) 259 /CMM (150-450); WHITE BLOOD COUNT (AUTO) 12.7 K/uL (4.3-11.0)
--- NOTE | 2019-10-03 07:30 | NUR ---
rn notes received patient in bed, asleep but is easily awaken by verbal stimuli, oriented x3, able to respond appropriately. no sob noted, on oxygen support via nasal cannula with oxygen at 6lpm. sating fine afib on the monitor with hr on the 110s. abdomen is distended but patient denies any discomfort. foot purple in color. patient claims to feel when touch, able to fight against effort but is weak. able to move lower extremity but is limited. patient encourage to verbalize feelings and concerns, to call for help/ assistance. call light placed within reach. safety measures observed and maintained. will continue to monitor patient accordingly
[2019-10-03 08:00] VITALS: BP 114/77
[2019-10-03 08:13] LABS: ALBUMIN 2.3 g/dL (3.4-5.0); BILIRUBIN,TOTAL 0.8 mg/dL (0.2-1.0); CALCIUM, SERUM 9.2 mg/dL (8.5-10.1); MAGNESIUM 2.9 mg/dL (1.8-2.4); PHOSPHORUS 7.9 mg/dL (2.5-4.9); TOTAL PROTEIN, SERUM 7.1 g/dL (6.4-8.2)
[2019-10-03 08:36] LABS: THYROID STIMULATING HORMONE 1.813 uIU/mL (0.358-3.74)
[2019-10-03 08:58] LABS: CREATININE 7.5 mg/dL (0.6-1.3)
[2019-10-03] MEDS: PANTOPRAZOLE 40 MG TABLET.DR PO SCH (09:04)
[2019-10-03] MEDS: ASPIRIN 81 MG TAB.CHEW PO SCH (09:04)
[2019-10-03] MEDS: APIXABAN 5 MG TABLET PO SCH ×2 (09:05→17:49)
[2019-10-03] MEDS: GABAPENTIN 300 MG CAPSULE PO SCH ×3 (09:05→17:46)
[2019-10-03] MEDS: CHOLECALCIFEROL 1,000 UNIT TABLET (VIT D3) PO SCH (09:07)
[2019-10-03] MEDS: PREGABALIN 25 MG CAPSULE PO SCH ×3 (09:07→17:47)
[2019-10-03] MEDS: ENSURE ENLIVE CHOC 237 ML CAN PO SCH ×3 (09:08→17:51)
--- NOTE | 2019-10-03 10:00 | NUR ---
LAURYN WINCHESTER HAVE INFORMED ME THAT PATIENT'S BLADDER IS FULL. INFORMED DR. PARADA ABOUT THE SITUATION SINCE HE IS AT THE UNIT AT THIS TIME. OBTAINED ORDER FOR NIXON CATHETER INSERTION. ORDER NOTED AND CARRIED OUT Addendum: 10/03/19 at 1835 by DIAMOND SILVA RN URINE BAG WAS ALMOST FILLED IMMEDIATELY WITH AMALIA COLORED CLEAR URINE. 200O ML IN ALL
--- NOTE | 2019-10-03 11:41 | NUR ---
WOUND CARE CONSULT: REVIEWED CHART, NURSING DOCUMENTATION AND PHOTOS WHICH INDICATE LEFT HEEL WOUND, SACRAL AND PERINEAL REDNESS, PRESENT ON ADMISSION. SURGICAL AND DPM CONSULTS REQUESTED FROM DR TALAVERA AND DR SHEA. RECOMMENDATIONS MADE FOR SKIN PROTECTION. DISCUSSED WITH NURSING STAFF. PT IS ON HAMLIN ISOFLEX LOW AIRLOSS BED. WILL SEE PRNDarryn TEMPLE IN AGREEMENT WITH PLAN OF CARE.
[2019-10-03 12:00] VITALS: BP 125/66
[2019-10-03] MEDS ORDERED: DEXAMETHASONE SOD PHOSPHATE 10 MG/ML VIAL IV SCH (12:30)
[2019-10-03] MEDS: DIGOXIN 0.125 MG TABLET PO SCH (12:53)
[2019-10-03] MEDS: CLOTRIMAZOLE/BETAMETASONE DIPROPIONATE 15 GM TUBE TP SCH ×2 (14:27→17:46)
[2019-10-03] MEDS: methylPREDNISolone SOD SUCC 125 MG/2ML VIAL IV SCH ×2 (14:27→17:46)
[2019-10-03] MEDS ORDERED: ALBUTEROL FS 2.5 MG/3 ML VIAL.NEB NEB PRN (14:30)
[2019-10-03] MEDS: DILTIAZEM HCL CD 240 MG PO SCH (14:40)
[2019-10-03 16:00] VITALS: BP 97/64
--- NOTE | 2019-10-03 16:00 | NUR ---
RN NOTES ENDORSED TO LAURYN CONTEH FOR CONTINUITY OF CARE. HANDS OFF
[2019-10-03] MEDS: IPRATROPIUM NEB FS 0.5 MG/2.5 ML AMPUL.NEB NEB SCH ×2 (16:45→19:30)
[2019-10-03 17:35] LABS: APPEARANCE,URINE CLEAR (CLEAR); BILIRUBIN,URINE SMALL (NEGATIVE); BLOOD, URINE NEGATIVE Ery/uL (NEGATIVE); COLOR,URINE YELLOW (YELLOW); KETONES,URINE NEGATIVE (NEGATIVE); LEUKOCYTE ESTERASE ,URINE NEGATIVE (NEGATIVE); NITRITE, URINE NEGATIVE (NEGATIVE); PH,URINE 5.5 (5.0-8.0); PROTEIN,URINE 30 mg/dl (NEGATIVE); UGLUCOSE NEGATIVE (NEGATIVE); UROBILINOGEN,URINE 0.2 EU/dL (0.2)
[2019-10-03 17:36] LABS: CREATININE, URINE 99.5 MG/DL (30.0-125.0); URINE TOTAL PROTEIN 44.2 mg/dL (0-11.9)
[2019-10-03] MEDS ORDERED: DIGOXIN INJ 0.5 MG/2 ML AMPUL IV SCH (18:00)
[2019-10-03 18:06] LABS: BACTERIA,URINE None seen /HPF (None Seen); RBC,URINE 0-2 /HPF (0-2); SQUAMOUS EPITHELIAL CELL,UR 0-2 /HPF (None Seen); URINE AMORPHOUS URATE Few /HPF (None Seen); WBC,URINE 0-2 /HPF (0-3)
[2019-10-03 19:03] LABS: EOSINOPHIL,URINE None Seen
[2019-10-03 21:00] VITALS: BP 108/67
--- NOTE | 2019-10-03 21:13 | NUR ---
RN notes Patient negative fo johnson virus, transfered to [facility] surge overflow. Endorsed to RN Ana María in stable condition.
[2019-10-04] MEDS: IPRATROPIUM NEB FS 0.5 MG/2.5 ML AMPUL.NEB NEB SCH ×8 (00:13→23:16)
[2019-10-04] MEDS ORDERED: NORTRIPTYLINE HCL 25 MG CAPSULE ONE (00:47)
[2019-10-04] MEDS: NORTRIPTYLINE HCL 25 MG CAPSULE PO SCH ×2 (01:01→21:15)
--- NOTE | 2019-10-04 02:39 | NUR ---
MS2/RN PATIENT IS SLEEPING AT THIS TIME APPEAR COMFORTABLE, NO SIGNS OF DISTRESS NOTED, CALL LIGHT IN REACH. WILL CONTINUE TO MONITOR.
--- NOTE | 2019-10-04 06:24 | NUR ---
MS2/RN PATIENT IS SLEEPING, APPEAR COMFORTABLE, NO SIGNS OF DISTRESS NOTED, BREATHING EVEN AND UNLABORED, ALL LIGHT IN REACH, ALL NEEDS ATTENDED AT THIS TIME, WILL CONTINUE TO MONITOR.
[2019-10-04 06:45] LABS: BASOPHILS % (AUTO) 0.1 % (0.0-2.0); HEMATOCRIT 46 % (39-51); HEMOGLOBIN 14.9 g/dL (13.5-17.5); LYMPHOCYTES # (AUTO) 0.2 /CMM (0.8-4.8); LYMPHOCYTES % (AUTO) 2.7 % (20.0-44.0); MEAN CORPUSCULAR HGB CONC 32 g/dl (31.0-36.0); MEAN CORPUSCULAR VOLUME 92 fL (80-96); MONOCYTES # (AUTO) 0.2 /CMM (0.1-1.30); MONOCYTES % (AUTO) 1.8 % (2.0-12.0); NEUTROPHILS # (AUTO) 8.2 /CMM (1.8-8.9); NEUTROPHILS % (AUTO) 95.4 % (43.0-81.0); PLATELET COUNT (AUTO) 248 /CMM (150-450); WHITE BLOOD COUNT (AUTO) 8.6 K/uL (4.3-11.0)
[2019-10-04 07:20] LABS: ALBUMIN 2.2 g/dL (3.4-5.0); BILIRUBIN,TOTAL 0.5 mg/dL (0.2-1.0); CALCIUM, SERUM 9.2 mg/dL (8.5-10.1); CREATININE 2.8 mg/dL (0.6-1.3); PHOSPHORUS 3.4 mg/dL (2.5-4.9); POTASSIUM 4.1 mmol/L (3.5-5.1); TOTAL PROTEIN, SERUM 6.4 g/dL (6.4-8.2)
[2019-10-04] MEDS: PANTOPRAZOLE 40 MG TABLET.DR PO SCH (07:33)
[2019-10-04 08:00] VITALS: BP 131/80
--- NOTE | 2019-10-04 08:00 | NUR ---
MS RN OPENING NOTES Received Patient resting in bed. A/O x 2. VS stable with no acute distress. Breathing even and unlabored on 3LPM via NC with no respiratory distress. Denies pain. No signs and symptoms of pain. 18g PIV on RFA intact, patent and flushing well with 1/2NS infusing at 75ml/hr. Burrows Cath in place and patent. Safety precautions in place. Bed locked and set to lowest position with side rails x 3 up. All needs rendered at this time. Call light within reach. Will continue to monitor
[2019-10-04] MEDS: ENSURE ENLIVE CHOC 237 ML CAN PO SCH ×3 (08:29→16:21)
[2019-10-04] MEDS: ASPIRIN 81 MG TAB.CHEW PO SCH (08:58)
[2019-10-04] MEDS: DILTIAZEM HCL CD 240 MG PO SCH (08:58)
[2019-10-04] MEDS: methylPREDNISolone SOD SUCC 125 MG/2ML VIAL IV SCH (08:58)
[2019-10-04] MEDS: APIXABAN 5 MG TABLET PO SCH ×2 (09:03→16:23)
[2019-10-04] MEDS: GABAPENTIN 300 MG CAPSULE PO SCH ×3 (09:03→16:22)
[2019-10-04] MEDS: CHOLECALCIFEROL 1,000 UNIT TABLET (VIT D3) PO SCH (09:03)
[2019-10-04] MEDS: PREGABALIN 25 MG CAPSULE PO SCH ×3 (09:03→16:22)
[2019-10-04 09:04] LABS: ABG BASE EXCESS -1.3 mmol/L; ABG OXYGEN SATURATION 97.7 % (92.0-98.5); ABG PCO2 34.6 mmHg (35.0-45.0); ABG PH 7.427 (7.350-7.450); ABG PO2 100.3 mmHg (75.0-100.0); AaDO2 116.2 mmHg; COHb 0.5 % (0.5-1.5); MetHb 0.2 % (0.0-1.5); SITE, ABG Right Radial; VENT MODE, BG NASAL CANNULA
[2019-10-04] MEDS: CLOTRIMAZOLE/BETAMETASONE DIPROPIONATE 15 GM TUBE TP SCH ×2 (09:04→16:23)
[2019-10-04] MEDS: methylPREDNISolone SOD SUCC 40 MG/ML VIAL IV SCH (10:00)
[2019-10-04] MEDS: DIGOXIN 0.125 MG TABLET PO SCH (12:51)
[2019-10-04 16:00] VITALS: BP 99/57
--- NOTE | 2019-10-04 16:23 | NUR ---
MS RN NOTES Noted hematuria, Eliquis 5mg held.
[2019-10-04] MEDS: IV 1/2NS 1000 ML 1,000 ML IV PRN (16:29)
--- NOTE | 2019-10-04 16:45 | NUR ---
MS RN NOTES Notified Christal TEMPLE, hematuria noted in the urine. Per , placed order for Urinalysis, CBC and BMP in the AM. Orders noted and carried out. Patient in stable condition. Will continue to monitor.
[2019-10-04 19:26] LABS: APPEARANCE,URINE SL CLOUDY (CLEAR); BILIRUBIN,URINE NEGATIVE (NEGATIVE); BLOOD, URINE LARGE Ery/uL (NEGATIVE); KETONES,URINE NEGATIVE (NEGATIVE); LEUKOCYTE ESTERASE ,URINE LARGE (NEGATIVE); NITRITE, URINE NEGATIVE (NEGATIVE); PH,URINE 5.5 (5.0-8.0); PROTEIN,URINE 100 mg/dl (NEGATIVE); UGLUCOSE NEGATIVE (NEGATIVE)
--- NOTE | 2019-10-04 19:27 | NUR ---
MS RN OPENING NOTES Received Patient resting in bed. A/O x 2. VS stable with no acute distress. Breathing even and unlabored on 1.5LPM via NC with no respiratory distress. Denies pain. No signs and symptoms of pain. 18g PIV on RFA intact, patent and flushing well with 1/2NS infusing at 75ml/hr. Burrows Cath in place and patent. Safety precautions in place. Bed locked and set to lowest position with side rails x 3 up. All needs rendered at this time. Call light within reach. Will endorse plan of care to oncoming shift. Addendum: 10/04/19 at 1927 by THOM GORDON RN ERROR DISREGARD NOTE
--- NOTE | 2019-10-04 19:27 | NUR ---
MS RN OPENING NOTES: RECEIVED PT ON 1.5LPM VIA NC AND IS TOLERATING WELL. NO SOB NOTED. NO S/S OF DISTRESS. PT IS AWAKE AND ALERT TO SELF AND SITUATION. PT HAS NIXON CATH AND IS ATTACHED TO DRAINAGE BAG WITH URINE DRAINING. BLEEDING NOTED MD IS AWARE ALREADY. PT HAS IV AND IS BEING INFUSED WITH IV 1/2 NS AT 75ML/HR. BED KEPT IN LOW, LOCKED POSITION, AND SIDE RAILS X 3 UP. BED ALARM ACTIVATED. CALL LIGHT WITHIN REACH. WILL CONTINUE TO MONITOR PT.
[2019-10-04 19:34] LABS: COLOR,URINE DARK YELLOW (YELLOW)
[2019-10-04 19:35] LABS: BACTERIA,URINE None seen /HPF (None Seen); RBC,URINE 51-80 /HPF (0-2); SQUAMOUS EPITHELIAL CELL,UR Few /HPF (None Seen)
[2019-10-04 20:00] VITALS: BP 113/69
[2019-10-05] MEDS: IPRATROPIUM NEB FS 0.5 MG/2.5 ML AMPUL.NEB NEB SCH ×6 (03:30→22:33)
--- NOTE | 2019-10-05 04:00 | NUR ---
RT pt refused tx. notified frank may
--- NOTE | 2019-10-05 04:05 | NUR ---
MS RN NOTES: EXPLAINED TO PT THE IMPORTANCE OF BREATHING TX BUT HE IS REFUSING; ALSO ENCOURAGED IT. WILL TRY AGAIN FOR NEXT SCHEDULED ONE.
[2019-10-05] MEDS: IV 1/2NS 1000 ML 1,000 ML IV PRN ×2 (04:07→17:13)
--- NOTE | 2019-10-05 06:30 | NUR ---
MS RN CLOSING NOTES: ALL NEEDS WERE ATTENDED AND ANTICIPATED FOR. PT KEPT CLEAN, DRY, AND COMFORTABLE. NO SOB NOTED. NO S/S OF DISTRESS. PT REMAINS ON 1.5LPM VIA NC AND IS TOLERATING WELL. PT HAS NIXON CATH AND IS ATTACHED TO DRAINAGE BAG WITH URINE DRAINING. OUTPUT WAS 520ML. PT TURNED AND REPOSITIONED Q 2HRS. HEELS OFFLOADED. WOUND TX PERFORMED ORDERED. IV REMAINS ON L HAND #20G AND IS BEING INFUSED WITH IV 1/2 NS AT 75ML/HR. BED KEPT IN LOW, LOCKED POSITION, AND SIDE RAILS X 3 UP. BED ALARM ACTIVATED WITH CALL LIGHT WITHIN REACH. WILL ENDORSE TO AM NURSE FOR AFSHAN.
[2019-10-05 07:09] LABS: BASOPHILS % (AUTO) 0.3 % (0.0-2.0); HEMATOCRIT 41 % (39-51); HEMOGLOBIN 13.4 g/dL (13.5-17.5); LYMPHOCYTES # (AUTO) 0.3 /CMM (0.8-4.8); LYMPHOCYTES % (AUTO) 2.6 % (20.0-44.0); MEAN CORPUSCULAR HGB CONC 32 g/dl (31.0-36.0); MEAN CORPUSCULAR VOLUME 92 fL (80-96); MONOCYTES # (AUTO) 0.7 /CMM (0.1-1.30); MONOCYTES % (AUTO) 6.3 % (2.0-12.0); NEUTROPHILS # (AUTO) 9.6 /CMM (1.8-8.9); NEUTROPHILS % (AUTO) 90.8 % (43.0-81.0); PLATELET COUNT (AUTO) 241 /CMM (150-450); RED BLOOD CELL COUNT(AUTO) 4.49 MIL/uL (4.5-6.0); WHITE BLOOD COUNT (AUTO) 10.5 K/uL (4.3-11.0)
--- NOTE | 2019-10-05 07:09 | NUR ---
MS RN NOTES: ENDORSED TO AM NURSEMARIA ISABEL, FOR AFSHAN.
[2019-10-05 07:24] LABS: CALCIUM, SERUM 8.9 mg/dL (8.5-10.1); CREATININE 1.4 mg/dL (0.6-1.3); POTASSIUM 3.9 mmol/L (3.5-5.1)
[2019-10-05 08:00] VITALS: BP 119/64
[2019-10-05] MEDS: GABAPENTIN 300 MG CAPSULE PO SCH ×3 (09:29→16:55)
[2019-10-05] MEDS: DILTIAZEM HCL CD 240 MG PO SCH (09:29)
[2019-10-05] MEDS: ASPIRIN 81 MG TAB.CHEW PO SCH (09:30)
[2019-10-05] MEDS: CHOLECALCIFEROL 1,000 UNIT TABLET (VIT D3) PO SCH (09:30)
[2019-10-05] MEDS: PREGABALIN 25 MG CAPSULE PO SCH ×3 (09:30→16:54)
[2019-10-05] MEDS: methylPREDNISolone SOD SUCC 40 MG/ML VIAL IV SCH (09:30)
[2019-10-05] MEDS: ENSURE ENLIVE CHOC 237 ML CAN PO SCH ×3 (09:31→16:55)
[2019-10-05] MEDS: APIXABAN 5 MG TABLET PO SCH ×2 (09:33→16:57)
[2019-10-05] MEDS: CLOTRIMAZOLE/BETAMETASONE DIPROPIONATE 15 GM TUBE TP SCH ×2 (09:39→16:58)
[2019-10-05] MEDS: DIGOXIN 0.125 MG TABLET PO SCH (12:21)
[2019-10-05] MEDS: PANTOPRAZOLE 40 MG TABLET.DR PO SCH (12:21)
--- NOTE | 2019-10-05 15:19 | NUR ---
PT REFUSED RESP TX ATT. NO S/S OF SOB NOTED. BENEFITS AND CONTRAINDICATIONS EXPLAINED. WILL CONT TO MONITOR Addendum: 10/05/19 at 1520 by MARCELLO CROWE RT Amended: Links added.
[2019-10-05 16:00] VITALS: BP 90/57
[2019-10-05 17:12] LABS: *SPE A/G RATIO 0.6 (0.7-1.7); *SPE ALBUMIN 2.1 g/dL (2.9-4.4); *SPE ALPHA-1-GLOBULIN 0.4 g/dL (0.0-0.4); *SPE BETA GLOBULIN 0.8 g/dL (0.7-1.3); *SPE GLOBULIN, TOTAL 3.6 g/dL (2.2-3.9); *SPE M-SPIKE 0.6 g/dL (Not Observed); *SPEGAMMA GLOBULIN 1.4 g/dL (0.4-1.8)
--- NOTE | 2019-10-05 18:37 | NUR ---
Patient resting in bed. A/O x 2. VS stable with no acute distress. Breathing even and unlabored on 1.5LPM via NC with no respiratory distress. Denies pain. No signs and symptoms of pain. 18g PIV on RFA intact, flushing 1/2NS at 75ml/hr. Burrows Cath in place and patent, output 800 ml. Safety precautions in place. Bed locked and set to lowest position with side rails x 3 up. All needs rendered at this time. Call light within reach. Will endorse to oncoming shift for AFSHAN .
--- NOTE | 2019-10-05 19:18 | NUR ---
MS RN NOTES PATIENT IN BED, ASLEEP, AROUSED EASILY. ALERT AND ORIENTED X 1-2. BREATHING EVEN AND UNLABORED ON 1.5L NC. SHOWS NO SIGNS ACUTE RESPIRATORY DISTRESS. NO ACUTE PAIN. F/C CLEAN DRY AND INTACT. FLOWING YELLOW URINE. IV ON L HAND 20G RUNNING 1/2 NS AT 75ML/HR. SHOWS NO SIGN OF INFILTRATION. NO REDNESS. SAFETY PRECAUTIONS IN PLACE. BED IN LOWEST POSITION, LOCKED, AND CALL LIGHT KEPT WITHIN REACH. WILL CONTINUE TO MONITOR.
[2019-10-05 20:00] VITALS: BP 94/48
[2019-10-05] MEDS: NORTRIPTYLINE HCL 25 MG CAPSULE PO SCH (21:20)
[2019-10-06] MEDS: IPRATROPIUM NEB FS 0.5 MG/2.5 ML AMPUL.NEB NEB SCH ×3 (02:35→11:09)
[2019-10-06] MEDS: IV 1/2NS 1000 ML 1,000 ML IV PRN (05:14)
--- NOTE | 2019-10-06 06:35 | NUR ---
MS RN NOTES PATIENT IN BED, ASLEEP, AROUSED EASILY. ALERT AND ORIENTED X 1-2. BREATHING EVEN AND UNLABORED ON 1.5L NC. SHOWS NO SIGNS ACUTE RESPIRATORY DISTRESS. NO ACUTE PAIN. F/C CLEAN DRY AND INTACT. FLOWING YELLOW URINE. IV ON L HAND 20G RUNNING 1/2 NS AT 75ML/HR. SHOWS NO SIGN OF INFILTRATION. NO REDNESS. ALL DUE MEDICATIONS GIVEN. SAFETY PRECAUTIONS IN PLACE. BED IN LOWEST POSITION, LOCKED, AND CALL LIGHT KEPT WITHIN REACH. WILL ENDORSE TO ONCOMING NURSE.
[2019-10-06 06:43] LABS: HEMATOCRIT 42 % (39-51); HEMOGLOBIN 13.5 g/dL (13.5-17.5); LYMPHOCYTES # (AUTO) 0.3 /CMM (0.8-4.8); LYMPHOCYTES % (AUTO) 2.9 % (20.0-44.0); MEAN CORPUSCULAR HGB CONC 32 g/dl (31.0-36.0); MEAN CORPUSCULAR VOLUME 93 fL (80-96); MONOCYTES # (AUTO) 0.8 /CMM (0.1-1.30); MONOCYTES % (AUTO) 7.5 % (2.0-12.0); NEUTROPHILS # (AUTO) 9.1 /CMM (1.8-8.9); NEUTROPHILS % (AUTO) 89.6 % (43.0-81.0); PLATELET COUNT (AUTO) 231 /CMM (150-450); RED BLOOD CELL COUNT(AUTO) 4.49 MIL/uL (4.5-6.0); WHITE BLOOD COUNT (AUTO) 10.2 K/uL (4.3-11.0)
[2019-10-06 07:12] LABS: CALCIUM, SERUM 8.4 mg/dL (8.5-10.1)
--- NOTE | 2019-10-06 07:45 | NUR ---
MS RN OPENING NOTE PATIENT IN BED RESTING COMFORTABLY. PATIENT IN NO ACUTE DISTRESS. NO SOB NOTED. PATIENT BREATHING IS EVEN AND UNLABORED. BED ALARM IS ON. HOB IS ELEVATED. NIXON CATHETER HANGING TO GRAVITY DRAINING CLEAR YELLOW URINE. SAFETY PRECAUTIONS IN PLACE. PATIENT BED IS LOCKED AND IN LOWEST POSITION. CALL LIGHT WITHIN REACH. WILL CONTINUE TO MONITOR.
--- NOTE | 2019-10-06 08:01 | NUR ---
RT PT REF BREATHING TX AT THIS TIME, NO SOB OR RESP DISTRESS NOTED.
[2019-10-06 08:15] VITALS: BP 119/67
[2019-10-06] MEDS: methylPREDNISolone SOD SUCC 40 MG/ML VIAL IV SCH (08:15)
[2019-10-06 08:16] VITALS: BP 119/67
[2019-10-06] MEDS: DILTIAZEM HCL CD 240 MG PO SCH (08:16)
[2019-10-06] MEDS: ASPIRIN 81 MG TAB.CHEW PO SCH (08:16)
[2019-10-06] MEDS: GABAPENTIN 300 MG CAPSULE PO SCH ×2 (08:16→12:40)
[2019-10-06] MEDS: PANTOPRAZOLE 40 MG TABLET.DR PO SCH (08:16)
[2019-10-06] MEDS: CHOLECALCIFEROL 1,000 UNIT TABLET (VIT D3) PO SCH (08:17)
[2019-10-06] MEDS: PREGABALIN 25 MG CAPSULE PO SCH ×2 (08:17→12:40)
[2019-10-06] MEDS: ENSURE ENLIVE CHOC 237 ML CAN PO SCH ×2 (08:18→12:40)
[2019-10-06] MEDS: APIXABAN 5 MG TABLET PO SCH (08:18)
[2019-10-06] MEDS: CLOTRIMAZOLE/BETAMETASONE DIPROPIONATE 15 GM TUBE TP SCH (08:19)
--- NOTE | 2019-10-06 10:30 | NUR ---
MS RN NOTE PER DR. BAERNATHY ORDER FOR NIXON CATHETER TO BE REMOVED. PATIENT NIXON CATHETER REMOVED AND TOLERATED WELL.
[2019-10-06] MEDS: DIGOXIN 0.125 MG TABLET PO SCH (12:40)
--- NOTE | 2019-10-06 14:22 | NUR ---
MS SUPERVISOR LATHING NOTE PATIENT MEDICALLY STABLE FOR DISCHARGE. PATIENT IN NO ACUTE DISTRESS. NO SOB NOTED. PATIENT BREATHING IS EVEN AND UNLABORED. DC INSTRUCTIONS PROVIDED, PATIENT UNABLE TO FULLY COMPREHEND DUE TO CONFUSION. ID BAND REMOVED. PATIENT BELONGINGS LIST AND DC PAPERWORK SIGNED BY TWO NURSES. PATIENT SKIN ASSESSED, NO NEW SKIN BREAKDOWN NOTED. PATIENT KEPT CLEAN, DRY, AND COMFORTABLE THROUGHOUT SHIFT. PATIENT WAS ABLE TO VOID DURING MY SHIFT AFTER NIXON CATHETER REMOVED. PATIENT TURNED AND REPOSITIONED Q2H. PATIENT EXTREMITIES OFFLOADED ON PILLOWS. REPORT GIVEN TO [facility] BELT SEW[facility] AT [facility]. PATIENT GOING BY GURNEY TO AMBULANCE WITH [facility]. MD AWARE OF DISCHARGE.
== END 2019-10-06 14:40 | DRG 190 ==
LOC: ER 18:21 → TELE-TD 21:18 → TELE1 22:44 → MEDSG1 10-03 11:55 → MEDSG2 10-03 20:32
PROVIDERS: ADMIT Nurse Practitioner Acute Care; ATTEND Internal Medicine
DX: J44.1 Chronic obstructive pulmonary disease with (acute) exacerbation (principal); N17.0 Acute kidney failure with tubular necrosis; J96.01 Acute respiratory failure with hypoxia; R53.2 Functional quadriplegia; G93.41 Metabolic encephalopathy; E44.0 Moderate protein-calorie malnutrition; D68.69 Other thrombophilia; J98.11 Atelectasis; I42.9 Cardiomyopathy, unspecified; I50.42 Chronic combined systolic (congestive) and diastolic (congestive) heart failure; I11.0 Hypertensive heart disease with heart failure; K21.9 Gastro-esophageal reflux disease without esophagitis; Z66 Do not resuscitate; Z87.891 Personal history of nicotine dependence; F03.90 Unspecified dementia, unspecified severity, without behavioral disturbance, psychotic disturbance, mood disturbance, and anxiety; I25.10 Atherosclerotic heart disease of native coronary artery without angina pectoris; L30.4 Erythema intertrigo; Z74.01 Bed confinement status; Z86.19 Personal history of other infectious and parasitic diseases; Z96.649 Presence of unspecified artificial hip joint; I48.91 Unspecified atrial fibrillation; Z79.01 Long term (current) use of anticoagulants; Z87.442 Personal history of urinary calculi; R73.9 Hyperglycemia, unspecified; E88.09 Other disorders of plasma-protein metabolism, not elsewhere classified; M62.81 Muscle weakness (generalized); L89.896 Pressure-induced deep tissue damage of other site; L89.626 Pressure-induced deep tissue damage of left heel; I73.9 Peripheral vascular disease, unspecified; I25.2 Old myocardial infarction; G62.9 Polyneuropathy, unspecified
CPT/HCPCS: 36415; 36600; 71045-TC; 76770-TC; 80048-TC; 80053-TC; 80061-TC; 80162-TC; 81000-TC; 82248-TC; 82550-TC; 82570-TC; 82728-TC; 82803-TC; 83540-TC; 83605-TC; 83615-TC; 83735-TC; 83880; 83970; 84100-TC; 84155; 84155-TC; 84165; 84300-TC; 84443-TC; 84484-TC; 85025-TC; 85378-TC; 85385-TC; 85730-TC; 86140-TC; 87040-TC; 87081-TC; 87086-TC; 93307-TC; 94799-TC; A4349; G0378; J1100; J2920; J2930; J3490; J7040; J7060; U0003-CS